=== PATIENT | female | born 1960 | race Caucasian/White ===

== ENCOUNTER 2018-08-20 16:24 | Outpatient (CLI) | payer BC ==
--- NOTE | 2018-08-20 18:43 | RAD ---
3 VIEWS RIGHT FOOT: Date: 08/20/18 HISTORY: Pain. Injury. Patient dropped a gallon of milk on the side of the foot 1 month ago. COMPARISON: None. FINDINGS: Lisfranc alignment is maintained. Joint spaces are preserved. No fracture. Minimal spurring of the ca lcaneus at the plantar aponeurosis insertion site. There is midfoot soft tissue swelling. IMPRESSION: No fracture. There is midfoot soft tissue swelling. POS: [facility]
== END 2018-08-20 16:25 | disposition home or self-care (01) ==
LOC: BICRAD 16:24
PROVIDERS: ATTEND Physician Assistant Medical
DX: S99.921A Unspecified injury of right foot, initial encounter (principal); M79.89 Other specified soft tissue disorders

== ENCOUNTER 2018-09-23 09:45 | Outpatient (CLI) | payer BC | END 2018-09-23 09:46 | disposition home or self-care (01) | LOC: BICMAMMO 09:45 | PROVIDERS: ATTEND Family Medicine | DX: Z12.31 Encounter for screening mammogram for malignant neoplasm of breast (principal) | CPT/HCPCS: 77063; 77067 ==

== ENCOUNTER 2020-11-30 08:57 | Inpatient (IN) | payer BC ==
[2020-11-30] MEDS ORDERED: Nitroglycerin 2% Ointment 1 INCH/1 GM Packet ONE (09:32)
[2020-11-30] MEDS ORDERED: Aspirin Chewable 81 MG TAB ONE (09:32)
--- NOTE | 2020-11-30 09:34 | RAD ---
Chest one view HISTORY: Chest pain. COMPARISON: 02/18/2019. FINDINGS: Cardiac silhouette is magnified by projection and slightly shifted rightward with patient r otation. Dual lead left subclavian cardiac electronic device in place. Pulmonary vasculature is engorged with mild bilateral perihilar infiltrates. Subtle, patchy partially peripheral areas of groundglass infiltrate are also evident. No evidence of pneumothorax. IMPRESSION : Borderline cardiomegaly with pulmonary vascular congestion. Correlate for CHF. Patchy groundglass infiltrates not completely typical for vascular congestion. Correlate for superimp osed viral pneumonitis.
[2020-11-30] MEDS ORDERED: Clopidogrel Bisulfate 75 MG TAB ONE (09:55)
[2020-11-30 10:00] LABS: #Eosinphils 0.1 thou/uL (0.0-0.7); #Lymphocytes 1.3 thou/uL (1.20-3.40); #Monocytes 0.3 thou/uL (0.11-0.59); #Neutrophils 6.2 thou/uL (1.40-6.50); %Basophils 0.6 % (0.0-1.0); %Eosinophils 1.7 % (0.0-10.0); %Lymphocytes 15.7 % (21.0-51.0); %Monocytes 4.1 % (0.0-10.0); %Neutrophils 77.9 % (42.0-75.0); Hemoglobin 12.6 g/dL (12.0-16.0); Mean Corpuscular Hemoglobin 31.3 pg (27.0-31.0); Mean Corpuscular Volume 92.2 fL (78.0-98.0); Mean Platelet Volume 9.7 fL (7.4-10.4); Platelet Count 253 thou/uL (130-400); RBC Distribution Width 11.7 % (11.5-14.5); Red Blood Cell (RBC) Count 4.01 mill/uL (4.20-5.40)
[2020-11-30] MEDS ORDERED: Labetalol HCl 100 MG/20 ML VIAL ONE (10:22)
[2020-11-30 10:23] LABS: ALT (SGPT) 24 U/L (8-55); AST (SGOT) 16 U/L (5-34); Albumin 4.2 g/dL (3.4-4.8); Alkaline Phosphatase 96 U/L (40-110); Anion Gap 15 mmol/L (10-20); BUN (Urea Nitrogen) 11 mg/dL (9.8-20.1); Bilirubin, Total 0.5 mg/dL (0.2-1.2); Calc. Creatinine Clearance 0 mL/min (70-130); Calcium 9.2 mg/dL (7.8-10.44); Carbon Dioxide 29 mmol/L (23-31); Chloride 97 mmol/L (98-107); Globulin 3.1 g/dL (2.4-3.5); Glucose 126 mg/dL (80-115); Potassium 3.7 mmol/L (3.5-5.1); Protein, Total 7.3 g/dL (6.0-8.3); Sodium 137 mmol/L (136-145)
[2020-11-30 10:38] LABS: CKMB 2.5 ng/mL (0-6.6)
--- NOTE | 2020-11-30 11:40 | PDOC.FPRHP ---
- History of Present Illness Chief Complaint: sob, chest pain History of Present Illness: 60 ho F with hx of heart block with AICD, HTN, HLD here for SOB. She has been having dyspnea with exertion for the past few days but denies LE swelling. She has had 3 episodes of substernal pressure with associated dyspnea and nausea. After the episode this morning she called Dr. Cardenas's office who advised her to come to the ER. She states sitting up improves the pain, no radiation with improvement with nitro paste given in the ER.She was found to have indeterminate troponins. Her BPs were in the 190s so was given 100 mg of labetalol. Discussion with Dr. Leblanc's nurse: She had a NMST in May 2020 that was normal with EF 64%, pacemaker brittaney this month that was normal, and an echo in 2018 that was also normal. Records will be faxed over. ER: plavix, labetalol 100mg, nitro paste - Allergies/Adverse Reactions Allergies Allergy/AdvReac Type Severity Reaction Status Date / Time Penicillins Allergy Verified 02/08/20 02:53 Sulfa (Sulfonamide Allergy Verified 02/08/20 02:53 Antibiotics) - Home Medications Medication Instructions Recorded Confirmed Type Amlodipine Besylate [amLODIPine 10 mg PO DAILY 04/06/16 04/06/16 History Besylate] Atorvastatin Calcium [Lipitor] 10 mg PO HS 04/06/16 04/06/16 History Carvedilol 25 mg PO BID 04/06/16 04/06/16 History Cholecalciferol (Vitamin D3) 1,000 unit PO DAILY 04/06/16 04/06/16 History [Vitamin D3] DULoxetine HCl 60 mg PO DAILY 04/06/16 04/06/16 History FLUoxetine HCl [Prozac] 40 mg PO DAILY 04/06/16 04/06/16 History hydrALAZINE [Apresoline] 25 mg PO BID 04/06/16 04/06/16 History Ciprofloxacin [Cipro] 500 mg PO BID #14 tab 04/08/16 Rx Metronidazole [metroNIDAZOLE] 500 mg PO Q12HR #14 tab 04/08/16 Rx Ondansetron [Zofran ODT] 4 mg PO Q6H PRN #15 tab 04/08/16 Rx traMADol HCl [Ultram] 50 mg PO Q6H PRN #12 tab 04/08/16 Rx - History PMHx: HTN, HLD, Thyroid, abnormal heart rhythm , congenital hip disorder PSHx: hysterectomy, pacemaker/AICD placement FHx: Cancer, DM2, CAD Social: Denies TAD. 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 - Review of Systems General: denies: fever/chills, weight/appetite/sleep changes, night sweats ENT: denies: nasal congestion, rhinorrhea Respiratory: reports: shortness of breath, exercise intolerance. denies: cough, congestion Cardiovascular: reports: chest pain. denies: palpitation, edema, orthopnea Gastrointestinal: reports: nausea. denies: vomiting, diarrhea, constipation, abdominal pain, GI bleeding Skin: denies: rashes, lesions Musculoskeletal: denies: pain, tenderness, stiffness, swelling Neurological: denies: numbness, syncope, seizure, weakness Psychological: reports: anxiety, depression - Vital signs BP: [164/82] HR: [72] RR: [18] Tmax: [99.5] Pox: [95]% on [2L] - Physical Exam Constitutional: NAD, awake, alert and oriented HEENT: normocephalic and atraumatic, PERRLA, EOMI, conjunctiva clear Neck: supple, FROM, trachea midline, no JVD Chest: no-tender to palpation, no lesions Heart: RRR, normal S1/S2, no murmurs/rubs/gallops Lungs: CTAB, no respiratory distress, no wheezing Abdomen: soft, non-tender, bowel sounds present Neurological: no focal deficit, CN II-XII intact, normal sensation Skin: no rash/lesions, good turgor, capillary refill <2 seconds Heme/Lymphatic: no unusual bruising or bleeding, no purpura Psychiatric: normal mood and affect, good judgment and insight FMR H&P: Results - Labs Result Diagrams: 11/30/20 09:45 11/30/20 09:45 Lab results: WBC 8.0 thou/uL (4.8-10.8) 11/30/20 09:45 Hgb 12.6 g/dL (12.0-16.0) 11/30/20 09:45 Hct 37.0 % (36.0-47.0) 11/30/20 09:45 MCV 92.2 fL (78.0-98.0) 11/30/20 09:45 Plt Count 253 thou/uL (130-400) 11/30/20 09:45 Neutrophils % 77.9 % (42.0-75.0) H 11/30/20 09:45 Sodium 137 mmol/L (136-145) 11/30/20 09:45 Potassium 3.7 mmol/L (3.5-5.1) 11/30/20 09:45 Chloride 97 mmol/L (98-107) L 11/30/20 09:45 Carbon Dioxide 29 mmol/L (23-31) 11/30/20 09:45 BUN 11 mg/dL (9.8-20.1) 11/30/20 09:45 Creatinine 0.69 mg/dL (0.6-1.1) 11/30/20 09:45 Glucose 126 mg/dL (80-115) H 11/30/20 09:45 Calcium 9.2 mg/dL (7.8-10.44) 11/30/20 09:45 Total Bilirubin 0.5 mg/dL (0.2-1.2) 11/30/20 09:45 AST 16 U/L (5-34) 11/30/20 09:45 ALT 24 U/L (8-55) 11/30/20 09:45 Alkaline Phosphatase 96 U/L (40-110) 11/30/20 09:45 CK-MB (CK-2) 2.5 ng/mL (0-6.6) 11/30/20 09:45 B-Natriuretic Peptide 244.4 pg/mL (0-100) H 11/30/20 09:45 Serum Total Protein 7.3 g/dL (6.0-8.3) 11/30/20 09:45 Albumin 4.2 g/dL (3.4-4.8) 11/30/20 09:45 - Radiology Interpretation Chest x-ray Status: image reviewed by me, report reviewed by me FMR H&P: A/P - Plan 60 yo F here for further evalaution due to concern for ACS Chest pain, ACS rule out -Indeterminate troponin of 0.036, will trend -EKG: V paced, [place] 246ms -Repeat TTE -HEART 5, NPO plan for repeat NMST with new change in sxs and cardiac risk factors -Nitro PRN, ASA dialy -Interrogate pacemaker -Admit to tele for cardiac monitoring -Consider COVID as cause of dyspnea-pending COVID screen, precuations for now HTN -Elevated in ER & required IV labetalol -Now improved to SBP 150s -Home meds, PRN hydralazine Hx of AV Block with Pacemaker -Interrogated in November in which nurse reports as normal -Will monitor on telemetry Anxiety/Depression -Continue home meds Recent root canal -Continue home abx Hypothyroidism -Continue home meds dvt ppx: lovenox gi ppx: protonix dispo: <2midnights PCP: Dr. Cardenas Discussed with Dr. Mahmood FMR H&P: Upper Level - Plan Date/Time: 11/30/20 2707 I, [], have evaluated this patient and agree with findings/plan as outlined by research program internship resident. Pertinent changes/additions are listed here. Addendum - Attending - Attending Attestation Date/Time: 11/30/20 4907 I personally evaluated the patient and discussed the management with Dr. Rodriguez. I agree with the History, Examination, Assessment and Plan documented above with any addition or exceptions noted below.
[2020-11-30 13:08] LABS: Troponin I 0.039 ng/mL (< 0.028)
[2020-11-30 13:19] LABS: SARS-CoV-2 NAA Rapid Test Not Detected (NotDetected)
[2020-11-30] MEDS ORDERED: Nitroglycerin 0.4 MG TAB (25 Tab Bottle) SL PRN (15:14)
[2020-11-30] MEDS ORDERED: Ondansetron ODT 4 MG TAB SL PRN (15:15)
[2020-11-30] MEDS ORDERED: Ondansetron PF 4 MG/2 ML Vial IVP PRN (15:15)
[2020-11-30 16:03] VITALS: BMI 49.8
[2020-11-30 16:59] LABS: Troponin I 0.021 ng/mL (< 0.028)
[2020-11-30] MEDS ORDERED: Senokot 8.6 MG TAB PO PRN (22:08)
[2020-11-30] MEDS ORDERED: Polyethylene Glycol 3350 17 GM Packet PO PRN (22:08)
[2020-11-30] MEDS ORDERED: Bisacodyl 5 MG TAB PO PRN (22:10)
[2020-11-30] MEDS: Acetaminophen 325 MG TAB PO PRN (22:59)
[2020-12-01] MEDS ORDERED: hydrALAZINE 25 MG TAB PO SCH (01:30)
[2020-12-01 05:03] LABS: Anion Gap 14 mmol/L (10-20); BUN (Urea Nitrogen) 10 mg/dL (9.8-20.1); Calc. Creatinine Clearance 171 mL/min (70-130); Carbon Dioxide 29 mmol/L (23-31); Cardiac Risk 3.3 (Less than 4.5); Chloride 94 mmol/L (98-107); Cholesterol 165 mg/dl (< 200 Desired); Glucose 122 mg/dL (80-115); HDL Cholesterol 50 mg/dL (>60 Neg Risk); LDL Cholesterol, Calculated 98 mg/dL; Sodium 133 mmol/L (136-145); Triglycerides 84 mg/dL (Less than 150)
--- NOTE | 2020-12-01 06:24 | PDOC.FM ---
- Subjective Subjective: Currently in stress test. No events overnight on tele: chronic 1st degree AV block noted - Objective MAR Reviewed: Yes Vital Signs & Weight: Vital Signs (12 hours) Temp Pulse Resp BP BP Pulse Ox 12/01/20 03:32 97.6 F 88 16 173/89 H 94 L 12/01/20 01:52 89 177/103 H 177/103 H 12/01/20 00:02 178/98 H 12/01/20 00:01 174/83 H 12/01/20 00:00 98.1 F 89 20 193/83 H 93 L 11/30/20 20:14 94 L 11/30/20 20:06 97.9 F 82 18 140/81 97 Weight Weight 131.723 kg I&O: 11/29/20 11/30/20 12/01/20 06:59 06:59 06:59 Intake Total 500 Balance 500 Result Diagrams: 11/30/20 09:45 12/01/20 04:25 Phys Exam - Physical Examination Constitutional: NAD HEENT: moist MMs, sclera anicteric Neck: full ROM Nonlabored, no respiratory distress Neurological: moves all 4 limbs Psychiatric: normal affect Dx/Plan - Plan Plan: 60 yo F here for further evalaution due to concern for ACS Chest pain, ACS rule out -Admit to tele for cardiac monitoring -Indeterminate troponin of 0.036 -> .039 -> .02 -COVID neg -EKG: V paced, [place] 246ms -HEART 5, repeat NMST this am due to new change in sxs and cardiac risk factors -Nitro PRN, ASA dialy -Interrogate pacemaker HTN -BP 170-190s systolic overnight, required hydralazine 25mg overnight -Home meds, PRN hydralazine Hx of AV Block with Pacemaker -Interrogated in November in which nurse reports as normal -Will monitor on telemetry Anxiety/Depression -Continue home meds Recent root canal -Continue home abx Hypothyroidism -Continue home meds dvt ppx: lovenox PCP: Dr. Cardenas Code: FULL Dispo: Home pending stress test and echo result Addendum - Attending - Attending Attestation Date/Time: 12/01/20 1122 I personally evaluated the patient and discussed the management with Dr. Rodriguez. I agree with the History, Examination, Assessment and Plan documented above with any addition or exceptions noted below.
[2020-12-01] MEDS ORDERED: Enoxaparin Sodium 40 MG/0.4 ML SYRINGE SC SCH (09:00)
[2020-12-01] MEDS ORDERED: Non-Formulary Item 1 EACH (Cholecalciferol (Vitamin D3) [Vitamin D3] 1,000 UNIT Capsule) PO SCH (09:00)
[2020-12-01] MEDS ORDERED: Non-Formulary Item 1 EACH (Levothyroxine Sodium [Levothyroxine] 75 MCG Capsule) PO SCH (09:00)
[2020-12-01] MEDS: Cholecalciferol 1,000 UNITS (25 MCG) TAB PO SCH (10:58)
[2020-12-01] MEDS: hydrALAZINE 25 MG TAB PO SCH ×2 (10:58→21:19)
[2020-12-01] MEDS: DULoxetine 60 MG CAP PO SCH (11:01)
[2020-12-01] MEDS: Aspirin Chewable 81 MG TAB PO SCH (11:39)
[2020-12-01] MEDS ORDERED: Spironolactone 25 MG TAB PO SCH (13:45)
[2020-12-01] MEDS ORDERED: Communication Order-Pharmacy FS SCH (13:45)
[2020-12-01] MEDS ORDERED: Furosemide 40 MG/4 ML VIAL SLOW IVP SCH (13:45)
--- NOTE | 2020-12-01 14:58 | CON ---
DATE OF CONSULTATION: 12/01/2020 REASON FOR CONSULTATION: Shortness of breath and chest pain. PRIMARY OUTREACH CONSULTANT: Dr. Terrence Eaton. HISTORY OF PRESENT ILLNESS: Ms. Olivarez is a pleasant 60-year-old white female, who comes to the hospital for chest pain and shortness of breath. She has significant cardiac history. She had a complete heart block about 2 years ago, in January of 2019, at which point she underwent permanent pacemaker placement by Dr. Eaton. More recently, about 6 to 7 months ago, she had a normal echo and a normal stress test at Dr. Eaton's office, and she was at Dr. Eaton's office about a week ago, at which point she had a normal interrogation of her pacemaker. Her EF in May 2020 on the nuclear stress test was 64%. She came in as she has had two days' worth of worsening shortness of breath and chest tightness. She came in, and her blood pressure was in the 190s over 100s. She was given IV labetalol, and her blood pressure has improved, but still elevated. On my evaluation, she denies any chest pain, tightness, or pressure, but admits to continued shortness of breath to the point where she is unable to lie flat on her back. PAST MEDICAL HISTORY: 1. Hypertension. 2. Hyperlipidemia. 3. Obesity. 4. Complete heart block, status post pacemaker placement. OUTPATIENT MEDICATIONS: 1. Hydralazine 50 mg b.i.d. 2. Levothyroxine 75 mcg a day. 3. Tramadol 50 mg p.r.n. 4. Duloxetine 120 mg a day. 5. Carvedilol 25 mg b.i.d. 6. Vitamin D3. 7. Lipitor 10 mg q.h.s. 8. Aspirin 81 a day. 9. Clindamycin added recently for a tooth infection. ALLERGIES: PENICILLIN AND SULFA DRUGS. SOCIAL HISTORY: Social alcohol use. No tobacco or drugs. FAMILY HISTORY: coronary artery disease in family members. SURGICAL HISTORY: 1. Pacemaker insertion. She does not have an AICD. She only has a pacemaker. 2. Hysterectomy. REVIEW OF SYSTEMS: A 12-point review of systems was done and was found to be negative other than stated in the history of present illness. PHYSICAL EXAMINATION: VITAL SIGNS: Temperature 97.6, pulse 88, respiratory rate 16, saturating 94% on room air, and blood pressure 173/89. GENERAL: Awake, alert, oriented x3, in no distress. HEENT: Normocephalic and atraumatic. NECK: Supple. LUNGS: Clear. CARDIOVASCULAR: S1 and S2. No S3 or S4. There is a very soft grade 2/6 systolic murmur in the right upper sternal border. ABDOMEN: Soft, positive bowel sounds. EXTREMITIES: Trace edema. SKIN: Warm and dry. LABORATORY DATA: Laboratory work was reviewed. White count of 8, hemoglobin of 12, hematocrit 37, and platelet count . Chemistry with a sodium of 133, potassium is 4.0, chloride of 94, carbon dioxide of 29, anion gap of 14, BUN of 10, creatinine 0.72, GFR of 82, glucose was 122. Hemoglobin A1c of 6.0. Calcium was 9. Troponin was 0.03, 0.03, and 0.02. BNP was 244. Cholesterol total of 165, triglycerides of 84, LDL of 98, HDL of 50. COVID-19 PCR serology was negative. Influenza A and B were both negative as well. Chest x-ray was reviewed, shows patchy ground-glass infiltrates, which could be correlated to heart failure versus a viral pneumonia. Echocardiogram recently reviewed, EF about 35% to 40% with akinesis of the apex, LVH. ASSESSMENT AND PLAN: 1. Acute on chronic systolic heart failure. 2. New onset dilated cardiomyopathy with an EF of 35% to 40%. 3. Presence of a pacemaker. 4. Hypertension. PLAN: 1. We will diurese today. We will give one dose of Lasix at 60 mg IV once. Hopefully, she will be able to breathe better, and she will be able to lie flat tomorrow morning to do a heart catheterization. 2. We will screen for ischemia with a left heart catheterization. We spoke at length about the risks and benefits of the procedure. Risks included but not limited to stroke, CA, , bleeding, need for blood transfusion, limb loss, organ loss, emergent bypass surgery. The patient understands and verbalized understanding of this and agrees to proceed. We also spoke about conscious sedation, and she agrees to this as well. Further recommendations as far as ischemic workup pending results of coronary angiogram. 3. We will start CHF medications. She is already on carvedilol at full dose, which we should continue. Continue hydralazine. We will add Entresto at the lowest dose and up titrate in the next few days, and we will possibly do Aldactone in the next few days as long as blood pressure is still an issue. Thank you for letting us participate in the care of your patient. We will follow. Job ID: [id number]
[2020-12-01] MEDS: Atorvastatin Calcium 10 MG TAB PO SCH (21:18)
[2020-12-01] MEDS: Acetaminophen 325 MG TAB PO PRN (21:22)
[2020-12-02] MEDS ORDERED: Sodium Chloride 0.9% 500 ML IV SCH (00:01)
[2020-12-02] MEDS ORDERED: hydrALAZINE 20 MG/ML VIAL SLOW IVP SCH ×2 (04:15→18:00)
[2020-12-02] MEDS: DULoxetine 60 MG CAP PO SCH (05:00)
[2020-12-02] MEDS: Aspirin Chewable 81 MG TAB PO SCH (05:02)
[2020-12-02] MEDS: Spironolactone 25 MG TAB PO SCH (05:02)
[2020-12-02] MEDS: Cholecalciferol 1,000 UNITS (25 MCG) TAB PO SCH (05:03)
[2020-12-02] MEDS: hydrALAZINE 25 MG TAB PO SCH ×2 (05:03→21:14)
[2020-12-02] MEDS: Levothyroxine Sodium 75 MCG TAB PO SCH (05:03)
--- NOTE | 2020-12-02 06:31 | PDOC.FM ---
- Subjective Subjective: Reports continued chest pain, unchanged since admission. Frontal headache this am that she associates with elevated BP. Orthopnea improved after recieving Lasix 60IV yesterday. Denies lightheadedness, fatigue, vision changes, palpitations, and edema. - Objective MAR Reviewed: Yes Vital Signs & Weight: Vital Signs (12 hours) Temp Pulse Resp BP Pulse Ox 12/02/20 05:07 98.7 F 89 17 168/75 H 97 12/02/20 05:03 94 12/02/20 04:11 94 12/02/20 03:30 86 197/94 H 12/01/20 23:36 94 145/95 H 12/01/20 21:19 79 12/01/20 19:47 99.1 F 94 19 152/101 H 96 Weight Weight 131.723 kg I&O: 11/30/20 12/01/20 12/02/20 06:59 06:59 06:59 Intake Total 500 980 Balance 500 980 Result Diagrams: 12/02/20 11:08 12/01/20 04:25 Phys Exam - Physical Examination Constitutional: NAD HEENT: moist MMs, sclera anicteric Neck: full ROM Respiratory: no wheezing, clear to auscultation bilateral Cardiovascular: RRR, no significant murmur Gastrointestinal: soft, non-tender, positive bowel sounds Musculoskeletal: no edema Neurological: moves all 4 limbs Psychiatric: normal affect, A&O x 3 Skin: no rash Dx/Plan - Plan Plan: 60 yo F with hx of complete heart block s/p pacer, HTN and HLD who presents with dyspnea on exertion Acute on chronic heart failure -HEART score 5. -Admit to tele for cardiac monitoring -Indeterminate troponin of 0.036 -> .039 -> .02 -COVID neg -EKG: V paced, [place] 246ms -Echo: 35-40%, akinesis present concerning for old [place] vs. takotsubo cardiomyopathy -Nitro PRN, ASA daily -Dr. George, cardiology, was consulted: Started entresto and spironolactone. s/p lasix 60mg IV once. Started NS @ 50 due to NPO status for L heart cath today Dilated cardiomyopathy -Management per above HTN -Home meds, PRN hydralazine Hx of complete AV Block with Pacemaker -Interrogated in November in which nurse reports as normal -Monitor on telemetry Anxiety/Depression -Continue home meds Recent root canal -Continue home abx Hypothyroidism -Continue home meds dvt ppx: lovenox PCP: Dr. Cardenas Code: FULL Dispo: Home pending further medical management Addendum - Attending - Attending Attestation Date/Time: 12/02/20 7582 I personally evaluated the patient and discussed the management with Dr. Rodriguez. I agree with the History, Examination, Assessment and Plan documented above with any addition or exceptions noted below. Patient resting comfortably, has completed LHC. Awaiting further cardiology recs. Needs improved BP control, will escalate. Further mgmt pending cardiology recs.
[2020-12-02] MEDS ORDERED: hydrALAZINE 25 MG TAB PO SCH (08:15)
[2020-12-02] MEDS ORDERED: Nitroglycerin 100MG/250ML BOT 250 ML ONE (08:57)
[2020-12-02] MEDS ORDERED: Heparin 10,000 UNITS/ 10 ML VIAL ONE (08:57)
[2020-12-02] MEDS ORDERED: Verapamil 5 MG/2 ML VIAL ONE (08:57)
[2020-12-02] MEDS ORDERED: Midazolam HCl 2 mg/2 ml Vial ONE (09:03)
[2020-12-02] MEDS ORDERED: Fentanyl 100 MCG/2 ML VIAL ONE (09:03)
[2020-12-02] MEDS ORDERED: Sodium Chloride 0.9% 200 ML IV PRN (10:02)
[2020-12-02] MEDS ORDERED: Sodium Chloride 0.9% 250 ML IV SCH (10:15)
[2020-12-02] MEDS ORDERED: Iopamidol 370 76% 100 ML VIAL ONE (10:22)
[2020-12-02] MEDS: Acetaminophen 325 MG TAB PO PRN (10:42)
[2020-12-02 11:21] LABS: #Eosinphils 0.2 thou/uL (0.0-0.7); #Lymphocytes 1.1 thou/uL (1.20-3.40); #Monocytes 0.5 thou/uL (0.11-0.59); #Neutrophils 6.1 thou/uL (1.40-6.50); %Basophils 0.3 % (0.0-1.0); %Monocytes 5.9 % (0.0-10.0); %Neutrophils 76.8 % (42.0-75.0); Hemoglobin 12.7 g/dL (12.0-16.0); Mean Corpuscular HGB CONC 33.5 g/dL (32.0-36.0); Mean Corpuscular Hemoglobin 30.9 pg (27.0-31.0); Mean Corpuscular Volume 92.3 fL (78.0-98.0); Mean Platelet Volume 10.5 fL (7.4-10.4); Platelet Count 200 thou/uL (130-400); RBC Distribution Width 11.9 % (11.5-14.5); Red Blood Cell (RBC) Count 4.11 mill/uL (4.20-5.40); White Blood Cell (WBC) Count 7.9 thou/uL (4.8-10.8)
[2020-12-02 11:39] LABS: Anion Gap 17 mmol/L (10-20); BUN (Urea Nitrogen) 7 mg/dL (9.8-20.1); Calc. Creatinine Clearance 205 mL/min (70-130); Calcium 8.4 mg/dL (7.8-10.44); Carbon Dioxide 23 mmol/L (23-31); Chloride 99 mmol/L (98-107); Glucose 116 mg/dL (80-115); Magnesium 1.4 mg/dL (1.6-2.6); Potassium 3.5 mmol/L (3.5-5.1); Sodium 135 mmol/L (136-145)
[2020-12-02] MEDS ORDERED: Carvedilol 25 MG TAB PO SCH (15:30)
[2020-12-02] MEDS: Carvedilol 25 MG TAB PO SCH (21:14)
[2020-12-02] MEDS: Atorvastatin Calcium 10 MG TAB PO SCH (21:14)
[2020-12-03 04:53] LABS: #Eosinphils 0.3 thou/uL (0.0-0.7); #Lymphocytes 1.1 thou/uL (1.20-3.40); #Monocytes 0.6 thou/uL (0.11-0.59); #Neutrophils 5.7 thou/uL (1.40-6.50); %Basophils 0.3 % (0.0-1.0); %Eosinophils 3.8 % (0.0-10.0); %Lymphocytes 14.3 % (21.0-51.0); %Monocytes 7.2 % (0.0-10.0); %Neutrophils 74.4 % (42.0-75.0); Hemoglobin 12.3 g/dL (12.0-16.0); Mean Corpuscular HGB CONC 33.5 g/dL (32.0-36.0); Mean Corpuscular Volume 92.7 fL (78.0-98.0); Mean Platelet Volume 9.2 fL (7.4-10.4); Platelet Count 252 thou/uL (130-400); RBC Distribution Width 11.8 % (11.5-14.5); Red Blood Cell (RBC) Count 3.97 mill/uL (4.20-5.40); White Blood Cell (WBC) Count 7.6 thou/uL (4.8-10.8)
[2020-12-03 05:22] LABS: Anion Gap 14 mmol/L (10-20); BUN (Urea Nitrogen) 11 mg/dL (9.8-20.1); Calc. Creatinine Clearance 186 mL/min (70-130); Calcium 8.6 mg/dL (7.8-10.44); Carbon Dioxide 26 mmol/L (23-31); Chloride 98 mmol/L (98-107); Glucose 118 mg/dL (80-115); Potassium 3.4 mmol/L (3.5-5.1); Sodium 135 mmol/L (136-145)
[2020-12-03] MEDS: Levothyroxine Sodium 75 MCG TAB PO SCH (05:32)
--- NOTE | 2020-12-03 06:11 | PDOC.FM ---
- Subjective Subjective: No acute overnight events. Endorses mild low back pain. No chest pain, SOB, palpitations. - Objective Vital Signs & Weight: Vital Signs (12 hours) Temp Pulse Resp BP BP Pulse Ox 12/03/20 04:20 98.3 F 79 18 143/71 H 95 12/02/20 21:14 80 150/76 H 12/02/20 21:13 80 12/02/20 21:00 98.3 F 79 20 142/67 H 95 Weight Weight 127.006 kg I&O: 12/01/20 12/02/20 12/03/20 06:59 06:59 06:59 Intake Total 500 980 970 Balance 500 980 970 Result Diagrams: 12/03/20 04:17 12/03/20 04:17 Phys Exam - Physical Examination Constitutional: NAD HEENT: moist MMs Neck: supple Respiratory: no wheezing, no rales, clear to auscultation bilateral Cardiovascular: RRR, no significant murmur Gastrointestinal: soft, non-tender Musculoskeletal: no edema, pulses present Neurological: non-focal, moves all 4 limbs Psychiatric: normal affect, A&O x 3 Skin: normal turgor, cap refill <2 seconds Dx/Plan - Plan Plan: 60 yo F with hx of complete heart block s/p pacer, HTN and HLD who presents with dyspnea on exertion Acute on chronic heart failure -HEART score 5. -Admit to tele for cardiac monitoring -Indeterminate troponin of 0.036 -> .039 -> .02 -COVID neg -EKG: V paced, [place] 246ms -Echo: 35-40%, akinesis present concerning for old [place] vs. takotsubo cardiomyopathy -Nitro PRN, ASA daily -Dr. George, cardiology, was consulted: - Started entresto and spironolactone - L heart cath: no CAD, likely HTN CM - appreciate further recs Dilated cardiomyopathy -Management per above HTN Elevated, has had some improvement. - continue home carvedilol, hydralazine - entresto added for HF which has improved BP some as well Hx of complete AV Block with Pacemaker -Interrogated in November in which nurse reports as normal -Monitor on telemetry Anxiety/Depression -Continue home meds Recent root canal -Continue home abx Hypothyroidism -Continue home meds dvt ppx: lovenox PCP: Dr. Cardenas Code: FULL Dispo: Home pending further medical management Addendum - Attending - Attending Attestation Date/Time: 12/03/20 2502 I personally evaluated the patient and discussed the management with Dr. Gaxiola. I agree with the History, Examination, Assessment and Plan documented above with any addition or exceptions noted below. Cath yesterday consistent with non-ischemic cardiomyopathy. Will f/u with cardiology recs. Continue current heart failure meds. Monitor blood pressure.
[2020-12-03] MEDS: DULoxetine 60 MG CAP PO SCH (08:06)
[2020-12-03] MEDS: hydrALAZINE 25 MG TAB PO SCH ×2 (08:06→21:16)
[2020-12-03] MEDS: Carvedilol 25 MG TAB PO SCH ×2 (08:07→21:16)
[2020-12-03] MEDS: Aspirin Chewable 81 MG TAB PO SCH (08:08)
[2020-12-03] MEDS: Spironolactone 25 MG TAB PO SCH (08:11)
[2020-12-03] MEDS: Cholecalciferol 1,000 UNITS (25 MCG) TAB PO SCH (08:11)
[2020-12-03] MEDS ORDERED: Lidocaine 5% Patch TD PRN (09:00)
[2020-12-03] MEDS ORDERED: Potassium Chloride 20 MEQ TAB PO SCH (10:00)
[2020-12-03] MEDS: Magnesium Oxide 400 MG TAB PO SCH ×2 (11:11→21:16)
[2020-12-03] MEDS: Acetaminophen 325 MG TAB PO PRN (16:09)
[2020-12-03] MEDS ORDERED: Lidocaine Patch Removal 1 EACH TOP SCH (21:00)
[2020-12-03] MEDS: Atorvastatin Calcium 10 MG TAB PO SCH (21:15)
[2020-12-04 04:10] LABS: #Eosinphils 0.3 thou/uL (0.0-0.7); #Lymphocytes 1.4 thou/uL (1.20-3.40); #Monocytes 0.5 thou/uL (0.11-0.59); #Neutrophils 4.3 thou/uL (1.40-6.50); %Basophils 0.6 % (0.0-1.0); %Lymphocytes 21.4 % (21.0-51.0); %Monocytes 8.2 % (0.0-10.0); %Neutrophils 64.8 % (42.0-75.0); Hemoglobin 12.5 g/dL (12.0-16.0); Mean Corpuscular HGB CONC 33.6 g/dL (32.0-36.0); Mean Corpuscular Hemoglobin 31.7 pg (27.0-31.0); Mean Corpuscular Volume 94.5 fL (78.0-98.0); Mean Platelet Volume 10.4 fL (7.4-10.4); Platelet Count 196 thou/uL (130-400); RBC Distribution Width 11.9 % (11.5-14.5); Red Blood Cell (RBC) Count 3.94 mill/uL (4.20-5.40); White Blood Cell (WBC) Count 6.6 thou/uL (4.8-10.8)
[2020-12-04 04:21] LABS: Anion Gap 15 mmol/L (10-20); BUN (Urea Nitrogen) 9 mg/dL (9.8-20.1); Calc. Creatinine Clearance 188 mL/min (70-130); Calcium 8.5 mg/dL (7.8-10.44); Carbon Dioxide 24 mmol/L (23-31); Chloride 100 mmol/L (98-107); Glucose 122 mg/dL (80-115); Potassium 3.7 mmol/L (3.5-5.1); Sodium 135 mmol/L (136-145)
[2020-12-04] MEDS: Levothyroxine Sodium 75 MCG TAB PO SCH (05:48)
--- NOTE | 2020-12-04 06:10 | PDOC.FM ---
- Subjective Subjective: No acute overnight events. BP relatively well controlled overnight, elevated this AM although this is possibly an artificial elevation as the cuff was popping off of the arm during measurement. Pt denies any chest pain, SOB, palpitations. Endorses some redness over R AC where she had IV previously, which is new. - Objective Vital Signs & Weight: Vital Signs (12 hours) Temp Pulse Resp BP BP Pulse Ox 12/04/20 04:00 97.7 F 75 16 140/79 95 12/04/20 00:00 81 145/78 H 12/03/20 21:16 84 12/03/20 20:00 98.1 F 84 18 177/79 H 98 Weight Weight 127.006 kg I&O: 12/02/20 12/03/20 12/04/20 06:59 06:59 06:59 Intake Total 980 970 Balance 980 970 Result Diagrams: 12/04/20 03:20 12/04/20 03:20 EKG Reviewed by me: Yes (SR rate 60s on tele overnight) Phys Exam - Physical Examination Constitutional: NAD HEENT: moist MMs Neck: supple Respiratory: no wheezing, no rales, clear to auscultation bilateral Cardiovascular: RRR, no significant murmur Gastrointestinal: soft, non-tender Musculoskeletal: pulses present, edema present (1-2+ pitting edema bilaterally in dependent positioning) Neurological: non-focal, moves all 4 limbs Psychiatric: normal affect, A&O x 3 Skin: normal turgor, cap refill <2 seconds Dx/Plan - Plan Plan: 60 yo F with hx of complete heart block s/p pacer, HTN and HLD who presents with dyspnea on exertion Acute on chronic heart failure -HEART score 5. -Admit to tele for cardiac monitoring -Indeterminate troponin of 0.036 -> .039 -> .02 -COVID neg -EKG: V paced, [place] 246ms -Echo: 35-40%, akinesis present concerning for old [place] vs. takotsubo cardiomyopathy -Nitro PRN, ASA daily -Dr. George, cardiology, was consulted: - Started entresto and spironolactone - L heart cath: no CAD, likely HTN CM - appreciate further recs Dilated cardiomyopathy -Management per above HTN Elevated, has had some improvement. - continue home carvedilol, hydralazine - entresto added for HF which has improved BP some as well Hx of complete AV Block with Pacemaker -Interrogated in November in which nurse reports as normal -Monitor on telemetry Anxiety/Depression -Continue home meds Recent root canal -Continue home abx Hypothyroidism -Continue home meds dvt ppx: lovenox PCP: Dr. Cardenas Code: FULL Dispo: Home pending further medical management Addendum - Attending - Attending Attestation Date/Time: 12/04/20 1640 I personally evaluated the patient and discussed the management with Dr. Gaxiola. I agree with the History, Examination, Assessment and Plan documented above with any addition or exceptions noted below. Will work to adjust meds for better bp control. Will f/u on cardiology recs. Pt states she is feeling a little better.
[2020-12-04] MEDS: hydrALAZINE 25 MG TAB PO SCH ×2 (07:58→21:41)
[2020-12-04] MEDS: DULoxetine 60 MG CAP PO SCH (07:59)
[2020-12-04] MEDS: Carvedilol 25 MG TAB PO SCH ×2 (07:59→21:41)
[2020-12-04] MEDS: Spironolactone 25 MG TAB PO SCH (07:59)
[2020-12-04] MEDS: Cholecalciferol 1,000 UNITS (25 MCG) TAB PO SCH (08:00)
[2020-12-04] MEDS: Aspirin Chewable 81 MG TAB PO SCH (08:00)
[2020-12-04] MEDS: Lidocaine 5% Patch TD PRN (17:28)
[2020-12-04] MEDS: Atorvastatin Calcium 10 MG TAB PO SCH (21:41)
[2020-12-04] MEDS: OXcarbazepine 300 MG TAB PO SCH (21:42)
[2020-12-05] MEDS: Acetaminophen 325 MG TAB PO PRN ×2 (00:49→14:06)
[2020-12-05] MEDS: Levothyroxine Sodium 75 MCG TAB PO SCH (05:49)
--- NOTE | 2020-12-05 06:06 | PDOC.FM ---
- Subjective Subjective: Patient reports continued headache throughout hospitalization. Says headache fluctuates in severity depending on BP. Associated with R eye twitching - chronic. Denies chest pain, SOB, palpitations, nausea and abdominal pain. Reports mild LE edema overnight. Has hx of recurrent LE edema requiring Lasix intermittently. - Objective MAR Reviewed: Yes Vital Signs & Weight: Vital Signs (12 hours) Temp Pulse Resp BP Pulse Ox 12/05/20 04:00 97.6 F 84 24 H 200/95 H 97 12/05/20 00:00 81 173/83 H 12/04/20 21:41 86 12/04/20 20:00 98.6 F 86 18 142/86 H 97 Weight Weight 126.552 kg I&O: 12/03/20 12/04/20 12/05/20 06:59 06:59 06:59 Intake Total 970 Balance 970 Result Diagrams: 12/04/20 03:20 12/04/20 03:20 Phys Exam - Physical Examination Constitutional: NAD HEENT: moist MMs, sclera anicteric Neck: full ROM Respiratory: no wheezing, clear to auscultation bilateral Cardiovascular: RRR, no significant murmur Gastrointestinal: soft, non-tender, positive bowel sounds Musculoskeletal: edema present (2+ pitting edema up to knee bilaterally, nonpitting edema of hand bilaterally) Neurological: moves all 4 limbs Psychiatric: normal affect, A&O x 3 Skin: no rash Dx/Plan - Plan Plan: 60 yo F with hx of complete heart block s/p pacer, HTN and HLD who presents with dyspnea on exertion Acute on chronic heart failure -HEART score 5. -Admit to tele for cardiac monitoring -Indeterminate troponin of 0.036 -> .039 -> .02 -COVID neg -EKG: V paced, [place] 246ms -Echo: 35-40%, akinesis present concerning for old [place] vs. takotsubo cardiomyopathy -Nitro PRN, ASA daily -Dr. George, cardiology, was consulted: - Started entresto and spironolactone - L heart cath: no CAD, likely HTN CM - appreciate further recs -Lasix 40mg IV this am Dilated cardiomyopathy -Management per above HTN Elevated, has had some improvement. - continue home carvedilol 25 BID - increase home hydralazine from 50 BID to 100 BID - entresto, spironolactone added for HF which has improved BP some as well Hx of complete AV Block with Pacemaker -Interrogated in November in which nurse reports as normal -Monitor on telemetry Anxiety/Depression -Continue home meds Recent root canal -Continue home abx Hypothyroidism -Continue home meds dvt ppx: lovenox PCP: Dr. Cardenas Code: FULL Dispo: Home pending further medical management Addendum - Attending - Attending Attestation Date/Time: 12/05/20 3528 I personally evaluated the patient and discussed the management with Dr. Rodriguez. I agree with the History, Examination, Assessment and Plan documented above with any addition or exceptions noted below. Patient's bp is elevated. Will adjust oral meds. Still has some edema.
[2020-12-05] MEDS ORDERED: hydrALAZINE 20 MG/ML VIAL SLOW IVP SCH (06:15)
[2020-12-05] MEDS ORDERED: Loratadine 10 MG TAB PO PRN (08:12)
[2020-12-05] MEDS ORDERED: Furosemide 40 MG/4 ML VIAL SLOW IVP SCH (08:15)
[2020-12-05] MEDS ORDERED: hydrALAZINE 25 MG TAB PO SCH (09:00)
[2020-12-05] MEDS ORDERED: Non-Formulary Item 1 EACH (Fluoxetine Hcl [Prozac] 40 MG Capsule) PO SCH (09:00)
[2020-12-05] MEDS: DULoxetine 60 MG CAP PO SCH (09:41)
[2020-12-05] MEDS: Spironolactone 25 MG TAB PO SCH (09:42)
[2020-12-05] MEDS: Carvedilol 25 MG TAB PO SCH ×2 (09:42→21:59)
[2020-12-05] MEDS: OXcarbazepine 300 MG TAB PO SCH ×2 (09:42→21:59)
[2020-12-05] MEDS: Aspirin Chewable 81 MG TAB PO SCH (09:44)
[2020-12-05] MEDS: FLUoxetine HCl 20 MG CAP PO SCH (09:49)
[2020-12-05] MEDS: Cholecalciferol 1,000 UNITS (25 MCG) TAB PO SCH (09:49)
[2020-12-05 11:19] LABS: #Eosinphils 0.2 thou/uL (0.0-0.7); #Lymphocytes 1.1 thou/uL (1.20-3.40); #Monocytes 0.4 thou/uL (0.11-0.59); %Basophils 0.4 % (0.0-1.0); %Eosinophils 3.7 % (0.0-10.0); %Lymphocytes 16.4 % (21.0-51.0); %Monocytes 5.2 % (0.0-10.0); %Neutrophils 74.3 % (42.0-75.0); Mean Corpuscular HGB CONC 33.2 g/dL (32.0-36.0); Mean Corpuscular Hemoglobin 31.1 pg (27.0-31.0); Mean Corpuscular Volume 93.7 fL (78.0-98.0); Mean Platelet Volume 10.9 fL (7.4-10.4); Platelet Count 209 thou/uL (130-400); RBC Distribution Width 11.8 % (11.5-14.5); Red Blood Cell (RBC) Count 4.18 mill/uL (4.20-5.40); White Blood Cell (WBC) Count 6.7 thou/uL (4.8-10.8)
[2020-12-05 11:44] LABS: Anion Gap 17 mmol/L (10-20); BUN (Urea Nitrogen) 8 mg/dL (9.8-20.1); Calc. Creatinine Clearance 174 mL/min (70-130); Calcium 9.4 mg/dL (7.8-10.44); Carbon Dioxide 24 mmol/L (23-31); Chloride 98 mmol/L (98-107); Glucose 130 mg/dL (80-115); Potassium 3.9 mmol/L (3.5-5.1); Sodium 135 mmol/L (136-145)
[2020-12-05] MEDS ORDERED: hydrALAZINE 20 MG/ML VIAL SLOW IVP PRN (15:53)
--- NOTE | 2020-12-05 16:54 | PDOC.CPN ---
- Subjective Date: 12/05/20 Time: 16:52 Interval history: She is doign well. She has headaches when her BP is high and has been having a lot highs and normals in the last few days. - Review of Systems General: denies: fever/chills, weight/appetite/sleep changes, night sweats, fatigue Respiratory: denies: cough, congestion, shortness of breath, exercise intolerance Cardiovascular: denies: chest pain, palpitation, edema, paroxysmal nocturnal dyspnea, orthopnea Gastrointestinal: denies: nausea, vomiting, diarrhea, constipation, abd pain, GI bleeding Musculoskeletal: reports: pain. denies: tenderness, stiffness, swelling, arthritis/arthralgias Neurological: denies: numbness, syncope, seizure, weakness - Objective Allergies/Adverse Reactions: Allergies Allergy/AdvReac Type Severity Reaction Status Date / Time Penicillins Allergy Verified 02/08/20 02:53 Sulfa (Sulfonamide Allergy Verified 02/08/20 02:53 Antibiotics) Visit Medications: Current Medications Acetaminophen (Acetaminophen 325 Mg Tab) 650 mg PO Q6H PRN PRN Reason: Fever/Mild Pain Last Admin: 12/05/20 14:06 Dose: 650 mg Documented by: Acetaminophen/Codeine Phosphate (Acetaminophen/Codeine 30-300mg Tablet) 1 tab PO Q4H PRN PRN Reason: Mild Pain (1-3) Aspirin (Aspirin Chewable 81 Mg Tab) 81 mg PO DAILY [facility] Last Admin: 12/05/20 09:44 Dose: 81 mg Documented by: Atorvastatin Calcium (Atorvastatin Calcium 10 Mg Tab) 10 mg PO HS [facility] Last Admin: 12/04/20 21:41 Dose: 10 mg Documented by: Bisacodyl (Bisacodyl 5 Mg Tab) 10 mg PO DAILYPRN PRN PRN Reason: Constipation Last Admin: 12/02/20 21:17 Dose: 10 mg Documented by: Carvedilol (Carvedilol 25 Mg Tab) 25 mg PO BID [facility] Last Admin: 12/05/20 09:42 Dose: 25 mg Documented by: Cholecalciferol (Cholecalciferol 1,000 Units (25 Mcg) Tab) 1,000 units PO DAILY [facility] Last Admin: 12/05/20 09:49 Dose: 1,000 units Documented by: Duloxetine HCl (Duloxetine 60 Mg Cap) 120 mg PO DAILY [facility] Last Admin: 12/05/20 09:41 Dose: 120 mg Documented by: Fluoxetine HCl (Fluoxetine Hcl 20 Mg Cap) 40 mg PO DAILY [facility] Last Admin: 12/05/20 09:49 Dose: 40 mg Documented by: Hydralazine HCl (Hydralazine 25 Mg Tab) 50 mg PO BID [facility] Hydralazine HCl (Hydralazine 20 Mg/Ml Vial) 10 mg SLOW IVP Q4H PRN PRN Reason: SBP GREATER THAN 160 Levothyroxine Sodium (Levothyroxine Sodium 75 Mcg Tab) 75 mcg PO 0600 [facility] Last Admin: 12/05/20 05:49 Dose: 75 mcg Documented by: Lidocaine (Lidocaine 5% Patch) 2 patch TD DAILYPRN PRN PRN Reason: Mild-Moderate Pain (1-5) Last Admin: 12/04/20 17:28 Dose: 2 patch Documented by: Loratadine (Loratadine 10 Mg Tab) 10 mg PO DAILYPRN PRN PRN Reason: Allergies Oxcarbazepine (Oxcarbazepine 300 Mg Tab) 300 mg PO BID [facility] Last Admin: 12/05/20 09:42 Dose: 300 mg Documented by: Pantoprazole Sodium (Pantoprazole 40 Mg Tab) 40 mg PO DAILY [facility] Last Admin: 12/05/20 09:42 Dose: 40 mg Documented by: Polyethylene Glycol (Polyethylene Glycol 3350 17 Gm Packet) 17 gm PO DAILYPRN PRN PRN Reason: Constipation Sacubitril/Valsartan (Sacubitril 24mg/Valsartan 26mg Tab) 2 tab PO BID [facility] Senna (Senokot 8.6 Mg Tab) 2 tab PO HSPRN PRN PRN Reason: Constipation Last Admin: 11/30/20 22:59 Dose: 2 tab Documented by: Sodium Chloride (Flush - Normal Saline 10 Ml Syringe) 10 ml IVF Q12HR PRN PRN Reason: Saline Flush Sodium Chloride (Flush - Normal Saline 10 Ml Syringe) 10 ml IVF PRN PRN PRN Reason: Saline Flush Spironolactone (Spironolactone 25 Mg Tab) 25 mg PO QA[facility] Vital Signs & Weight: Vital Signs Temp Pulse Resp BP Pulse Ox 12/05/20 15:50 97.9 F 75 18 180/118 H 97 12/05/20 11:45 98.2 F 79 18 120/66 95 12/05/20 07:16 97.9 F 76 18 194/97 H 95 12/05/20 06:15 84 Weight 279 lb - Physical Exam General: alert & oriented x3 HEENT: mucus membranes moist Neck: supple neck Cardiac: regular rate and rhythm Lungs: normal breath sounds Neuro: grossly intact Abdomen: active bowel sounds Extremities: 1+ LE edema Skin: clear Musculoskeletal: no pain - Labs Result Diagrams: 12/05/20 10:54 12/05/20 10:54 Troponin/CKMB CK-MB (CK-2) 2.5 ng/mL (0-6.6) 11/30/20 09:45 Troponin I 0.021 ng/mL (< 0.028) 11/30/20 16:06 - Telemetry Sinus rhythms and dysrhythmias: sinus rhythm - Assessment/Plan Assessment/Plan: 1. Non ischemic CM 2. Hypertension 3. Normal coronaries 4. Presence of PPM due to CHB 5. HLP PLAN: - Would keep Hydralazine at 50 mg BID and use half a tablet PRN for sBP>185 or DBP>120 - Will up titrate Entresto to 48/52 BID and will increase aldactone to 25 mg daily. - Discharge home tomorrow am and follow up with Dr. Eaton in 2-4 weeks for up titration of BP meds.
[2020-12-05] MEDS: Acetaminophen/Codeine 30-300mg Tablet PO PRN (18:31)
[2020-12-05] MEDS: Atorvastatin Calcium 10 MG TAB PO SCH (21:58)
[2020-12-05] MEDS: hydrALAZINE 25 MG TAB PO SCH (21:59)
[2020-12-06] MEDS: Acetaminophen/Codeine 30-300mg Tablet PO PRN (03:14)
[2020-12-06 04:49] LABS: #Eosinphils 0.3 thou/uL (0.0-0.7); #Lymphocytes 1.2 thou/uL (1.20-3.40); #Monocytes 0.5 thou/uL (0.11-0.59); #Neutrophils 5.1 thou/uL (1.40-6.50); %Basophils 0.1 % (0.0-1.0); %Eosinophils 4.4 % (0.0-10.0); %Lymphocytes 17.3 % (21.0-51.0); %Monocytes 7.1 % (0.0-10.0); %Neutrophils 71.1 % (42.0-75.0); Hemoglobin 12.4 g/dL (12.0-16.0); Mean Corpuscular HGB CONC 33.2 g/dL (32.0-36.0); Mean Corpuscular Hemoglobin 30.4 pg (27.0-31.0); Mean Corpuscular Volume 91.7 fL (78.0-98.0); Mean Platelet Volume 10.3 fL (7.4-10.4); Platelet Count 233 thou/uL (130-400); RBC Distribution Width 11.7 % (11.5-14.5); Red Blood Cell (RBC) Count 4.07 mill/uL (4.20-5.40); White Blood Cell (WBC) Count 7.2 thou/uL (4.8-10.8)
[2020-12-06 05:11] LABS: Anion Gap 14 mmol/L (10-20); BUN (Urea Nitrogen) 9 mg/dL (9.8-20.1); Calc. Creatinine Clearance 187 mL/min (70-130); Calcium 8.6 mg/dL (7.8-10.44); Carbon Dioxide 26 mmol/L (23-31); Chloride 94 mmol/L (98-107); Glucose 131 mg/dL (80-115); Potassium 3.6 mmol/L (3.5-5.1); Sodium 130 mmol/L (136-145)
[2020-12-06] MEDS: Levothyroxine Sodium 75 MCG TAB PO SCH (05:23)
--- NOTE | 2020-12-06 06:25 | PDOC.FM ---
- Subjective Subjective: Headache improved overnight, associated with improved BP control . Denies chest pain, SOB, palpitations, nausea and abdominal pain. Is ready to go home. - Objective MAR Reviewed: Yes Vital Signs & Weight: Vital Signs (12 hours) Temp Pulse Resp BP BP Pulse Ox 12/06/20 03:12 98.5 F 77 20 167/87 H 93 L 12/06/20 00:00 81 139/71 12/05/20 21:59 76 12/05/20 20:00 98.4 F 76 18 150/80 H 96 12/05/20 18:32 80 169/80 H Weight Weight 126.325 kg I&O: 12/04/20 12/05/20 12/06/20 06:59 06:59 06:59 Intake Total 1520 Balance 1520 Result Diagrams: 12/06/20 04:20 12/06/20 04:20 Phys Exam - Physical Examination Constitutional: NAD HEENT: moist MMs, sclera anicteric Neck: full ROM Respiratory: no wheezing, clear to auscultation bilateral Cardiovascular: RRR, no significant murmur Gastrointestinal: soft, non-tender, positive bowel sounds Musculoskeletal: no edema Neurological: moves all 4 limbs Psychiatric: normal affect, A&O x 3 Skin: no rash Dx/Plan - Plan Plan: 60 yo F with hx of complete heart block s/p pacer, HTN and HLD who presents with dyspnea on exertion Acute on chronic heart failure -HEART score 5 -Admit to tele for cardiac monitoring -Indeterminate troponin of 0.036 -> .039 -> .02 -COVID neg -EKG: V paced, [place] 246ms -Echo: 35-40%, akinesis present concerning for old NC vs. takotsubo cardiomyopathy -Nitro PRN, ASA daily -Dr. George, cardiology, was consulted: - Started entresto and spironolactone - L heart cath: no CAD, likely HTN CM - F/u with Lammoglia in 2-4 weeks for further BP med titration Dilated cardiomyopathy -Management per above HTN Elevated, has had some improvement. - continue home carvedilol 25 BID and hydralazine 50mg BID - entresto, spironolactone added for HF which has improved BP - Hydralazine 25mg PRN for SBP > 185, DBP > 120 Hx of complete AV Block with Pacemaker -Interrogated in November in which nurse reports as normal -Monitor on telemetry Anxiety/Depression -Continue home meds Recent root canal -Continue home abx Hypothyroidism -Continue home meds dvt ppx: lovenox PCP: Dr. Cardenas Code: FULL Dispo: Home today. F/u with Dr. Eaton in 2-4 weeks Addendum - Attending - Attending Attestation Date/Time: 12/06/20 3052 I personally evaluated the patient and discussed the management with Dr. Rodriguez. I agree with the History, Examination, Assessment and Plan documented above with any addition or exceptions noted below. On GDT, will plan on dc as she appears to be relatively euvolemic. Return precautions discussed and needs to f/u in 1-2 days.
[2020-12-06] MEDS ORDERED: Spironolactone 25 MG TAB PO SCH (08:00)
[2020-12-06] MEDS ORDERED: hydrALAZINE 20 MG/ML VIAL SLOW IVP PRN (08:22)
[2020-12-06] MEDS: FLUoxetine HCl 20 MG CAP PO SCH (08:52)
[2020-12-06] MEDS: DULoxetine 60 MG CAP PO SCH (08:52)
[2020-12-06] MEDS: hydrALAZINE 25 MG TAB PO SCH (08:52)
[2020-12-06] MEDS: OXcarbazepine 300 MG TAB PO SCH (08:52)
[2020-12-06] MEDS: Cholecalciferol 1,000 UNITS (25 MCG) TAB PO SCH (08:53)
[2020-12-06] MEDS: Carvedilol 25 MG TAB PO SCH (08:53)
[2020-12-06] MEDS: Aspirin Chewable 81 MG TAB PO SCH (08:53)
[2020-12-06 11:26] VITALS: BP 162/97; TEMP 97.9
[2020-12-06] MEDS ORDERED: FLU VACC QS2020-21(6MOS UP)/PF 60 MCG/0.5 ML SYRINGE IM ONE (13:00)
[2020-12-06] MEDS: Lidocaine 5% Patch TD PRN (13:46)
--- NOTE | 2020-12-07 13:01 | DIS ---
DATE OF ADMISSION: 12/02/2020 DATE OF DISCHARGE: 12/06/2020 RESIDENT: Esmer Rodriguez MD ADMITTING ATTENDING: Rene Mahmood MD DISCHARGE ATTENDING: Darshan Howe MD CONSULTATION: Dr. George, Cardiology. PROCEDURES: 1. Echo showed ejection fraction of 35% to 40% with akinesis present, concerning for an old RI versus Takotsubo cardiomyopathy. 2. Left heart catheterization completed on 12/02/2020, showed no ischemia, no PAD, likely hypertensive cardiomyopathy. PRIMARY DIAGNOSES: 1. Acute on chronic heart failure. 2. Dilated cardiomyopathy. SECONDARY DIAGNOSES: 1. Hypertension. 2. History of complete atrioventricular block with pacemaker. 3. Anxiety. 4. Depression. 5. Recent root canal. 6. Hypothyroidism. DISCHARGE MEDICATIONS: 1. Hydralazine 50 mg p.o. b.i.d. 2. Carvedilol 25 mg p.o. b.i.d. 3. Duloxetine 120 mg p.o. daily. 4. Levothyroxine 75 mcg p.o. daily. 5. Lipitor 10 mg p.o. at bedtime. 6. Fluoxetine 40 mg p.o. daily. 7. Vitamin D3 of 1000 units p.o. daily. 8. Spironolactone 25 mg p.o. q.a.m. 9. Hydralazine 25 mg p.o. p.r.n. if systolic blood pressure is greater than 185 or diastolic blood pressure is greater than 120. 10. Aspirin 81 mg daily. 11. Entresto 24-26, two tablets p.o. b.i.d. 12. Magnesium oxide 400 mg p.o. b.i.d. 13. Ultram 50 mg p.o. at bedtime p.r.n. 14. Trileptal 300 mg p.o. b.i.d. DISCONTINUED MEDICATIONS: None. HISTORY OF PRESENT ILLNESS/HOSPITAL COURSE: The patient is a 60-year-old female with a history of AICD, hypertension, and hyperlipidemia, who presented with dyspnea on exertion for the past three days. Initial troponin was indeterminate at 0.036, HEART score was 5, therefore the patient was admitted to tele inpatient for cardiac monitoring. Troponin was trended and remained indeterminate, had a repeat 0.039 to 0.02. EKG in the ED was V paced, RI 246. Echo was completed and showed an ejection fraction of 35% to 40% with akinesis present. The patient was diagnosed with acute on chronic heart failure by Dr. George, Cardiology, took the patient to left heart catheterization on 12/02/2020 that showed no CAD with a likely hypertensive cardiomyopathy. He started Entresto and spironolactone for CHF. The patient's blood pressure remained consistently elevated during hospitalization. She was continued on her home carvedilol 25 mg b.i.d. and hydralazine 50 mg b.i.d. Hydralazine 25 mg p.r.n. was added for a systolic blood pressure greater than 185 or diastolic blood pressure greater than 120. The patient was instructed to follow up with Dr. Eaton in 2 to 4 weeks for further blood pressure medication titration. She was deemed stable for discharge home on 12/06/2020. She will follow up with her PCP, Dr. Cardenas within one week and Dr. Eaton in 2 to 4 weeks. DISPOSITION: Stable. DISCHARGE INSTRUCTIONS: 1. Location: Home. 2. Diet: Heart healthy, consistent carb. 3. Activity: As tolerated. 4. Follow up with Dr. Cardenas, PCP, within one week. Also follow up with Dr. Eaton, Cardiology, within 2 to 4 weeks. Job ID: [id number] [facility]
[2020-12-13 00:08] LABS: Metanephrine,Plasma 22.3 pg/mL (0.0-88.0); Normetanephrine,Pl 178.1 pg/mL (0.0-191.8)
== END 2020-12-06 16:02 | disposition home or self-care (01) | DRG 287 ==
LOC: ERS 08:57 → 2NO 11:08 → OBSVTOIN 12-02 17:21
PROVIDERS: ADMIT Family Medicine; ATTEND Family Medicine
PROC: 8E0ZXY6 Isolation (ICD-10-PCS; 2020-11-30)
PROC: 4B02XSZ Measurement of Cardiac Pacemaker, External Approach (ICD-10-PCS; 2020-12-01)
PROC: 4A023N7 Measurement of Cardiac Sampling and Pressure, Left Heart, Percutaneous Approach (ICD-10-PCS; principal; 2020-12-02)
PROC: B2111ZZ Fluoroscopy of Multiple Coronary Arteries using Low Osmolar Contrast (ICD-10-PCS; 2020-12-02)
DX: I11.0 Hypertensive heart disease with heart failure (principal); Z68.42 Body mass index [BMI] 45.0-49.9, adult; Z20.822 Contact with and (suspected) exposure to COVID-19; I50.23 Acute on chronic systolic (congestive) heart failure; I42.0 Dilated cardiomyopathy; F41.9 Anxiety disorder, unspecified; F32.9 Major depressive disorder, single episode, unspecified; E03.9 Hypothyroidism, unspecified; I44.0 Atrioventricular block, first degree; J42 Unspecified chronic bronchitis; I42.8 Other cardiomyopathies; E66.9 Obesity, unspecified; Z79.899 Other long term (current) drug therapy; Z95.0 Presence of cardiac pacemaker; Z90.710 Acquired absence of both cervix and uterus; Z83.3 Family history of diabetes mellitus; Z82.49 Family history of ischemic heart disease and other diseases of the circulatory system; Z79.82 Long term (current) use of aspirin; Z88.0 Allergy status to penicillin; Z88.2 Allergy status to sulfonamides
CPT/HCPCS: 0240U; 36415; 71045; 80048; 80053; 80061; 82553; 83036; 83735; 83835; 83880; 84145; 84443; 84484; 85025; 90471; 90662; 93005; 93306; 93458; 93798; 94760; 96374; 96375; 97139; 99152; 99153; G0008; G0378; J0360; J1644; J1940; J2250; J3010; Q0162; Q9967

== ENCOUNTER 2021-01-05 00:52 | Emergency (ER) | payer BC ==
[2021-01-05] MEDS ORDERED: Oxymetazoline HCl 0.05% (30 ML BOT) ONE (01:20)
== END 2021-01-05 02:24 | disposition home or self-care (01) ==
LOC: ERS 00:52
DX: R04.0 Epistaxis (principal); E03.9 Hypothyroidism, unspecified; E78.5 Hyperlipidemia, unspecified; I10 Essential (primary) hypertension; I48.91 Unspecified atrial fibrillation; Z79.01 Long term (current) use of anticoagulants; Z79.899 Other long term (current) drug therapy
CPT/HCPCS: 99283

== ENCOUNTER 2021-08-06 12:39 | Inpatient (IN) | payer BC ==
[2021-08-06 13:36] LABS: #Lymphocytes 1.4 thou/uL (1.20-3.40); #Monocytes 0.6 thou/uL (0.11-0.59); #Neutrophils 9.6 thou/uL (1.40-6.50); %Basophils 0.1 % (0.0-1.0); %Eosinophils 0.4 % (0.0-10.0); %Monocytes 4.9 % (0.0-10.0); %Neutrophils 82.7 % (42.0-75.0); Hemoglobin 14.2 g/dL (12.0-16.0); Mean Corpuscular HGB CONC 34.3 g/dL (32.0-36.0); Mean Corpuscular Hemoglobin 30.5 pg (27.0-31.0); Mean Corpuscular Volume 88.8 fL (78.0-98.0); Mean Platelet Volume 8.9 fL (7.4-10.4); Platelet Count 301 thou/uL (130-400); RBC Distribution Width 11.2 % (11.5-14.5); Red Blood Cell (RBC) Count 4.65 mill/uL (4.20-5.40); White Blood Cell (WBC) Count 11.6 thou/uL (4.8-10.8)
[2021-08-06] MEDS ORDERED: Ondansetron PF 4 MG/2 ML Vial ONE (13:57)
[2021-08-06 13:58] LABS: ALT (SGPT) 27 U/L (8-55); AST (SGOT) 20 U/L (5-34); Albumin 4.5 g/dL (3.4-4.8); Alkaline Phosphatase 115 U/L (40-110); Anion Gap 15 mmol/L (10-20); BUN (Urea Nitrogen) 10 mg/dL (9.8-20.1); Bilirubin, Total 0.4 mg/dL (0.2-1.2); Calc. Creatinine Clearance 0 mL/min (70-130); Carbon Dioxide 28 mmol/L (23-31); Chloride 94 mmol/L (98-107); Glucose 128 mg/dL (80-115); Lipase 4 U/L (8-78); Potassium 4.6 mmol/L (3.5-5.1); Protein, Total 7.5 g/dL (5.8-8.1); Sodium 132 mmol/L (136-145)
[2021-08-06] MEDS ORDERED: Labetalol HCl 100 MG/20 ML VIAL ONE (14:36)
[2021-08-06 14:57] LABS: CKMB 5.4 ng/mL (0-6.6)
[2021-08-06] MEDS ORDERED: Iopamidol-370 76% 500 ML 1 ML ONE (15:36)
[2021-08-06 16:16] LABS: Bacteria/HPF 3+ HPF (None Seen); Bilirubin Negative (Negative); Blood, Urine Trace (Negative); Clarity Turbid (Clear); Glucose, Urine (Dipstick) 30 mg/dL (Negative); Ketone, Urine Trace mg/dL (Negative); Leukocyte Negative Leu/uL (Negative); Nitrite Negative (Negative); Protein, Urine (Dipstick) 600 mg/dL (Neg-Trace); RBC/HPF 0-3 HPF (0-3); Specific Gravity, Urine 1.031 (1.002-1.036); Squamous Epithelial 21-50 HPF (0-3); Urobilinogen Normal mg/dL (Less than 2); WBC/HPF 0-3 HPF (0-3); pH, Urine 6.5 (5.0-9.0)
[2021-08-06] MEDS ORDERED: Acetaminophen 500 MG TAB ONE (16:33)
[2021-08-06] MEDS ORDERED: Nitroglycerin 2% Ointment 1 INCH/1 GM Packet ONE (16:33)
[2021-08-06] MEDS ORDERED: Nitroglycerin 0.4 MG TAB 1 EACH ONE (16:34)
[2021-08-06] MEDS ORDERED: Ondansetron PF 4 MG/2 ML Vial IVP PRN (17:22)
[2021-08-06] MEDS ORDERED: Ondansetron ODT 4 MG TAB PO PRN (17:22)
[2021-08-06] MEDS ORDERED: Labetalol HCl 100 MG/20 ML VIAL SLOW IVP PRN (17:30)
[2021-08-06 18:00] LABS: Troponin I 0.052 ng/mL (< 0.028)
[2021-08-06 18:27] LABS: SARS-CoV-2 NAA Rapid Test Not Detected (NotDetected)
[2021-08-06 18:53] LABS: Magnesium 1.2 mg/dL (1.6-2.6)
[2021-08-06] MEDS ORDERED: Magnesium Sulfate 3 GM in Sodium Chloride 0.9% 100 ML IVPB SCH (19:15)
[2021-08-06] MEDS: OXcarbazepine 300 MG TAB PO SCH (20:44)
[2021-08-06] MEDS: Carvedilol 25 MG TAB PO SCH (20:44)
[2021-08-06] MEDS: Scopolamine 1.5 mg/72 hour Patch TD SCH (20:44)
[2021-08-06] MEDS: Apixaban 5 MG TAB PO SCH (20:44)
[2021-08-06] MEDS ORDERED: Acetaminophen 325 MG TAB ONE (20:48)
[2021-08-06] MEDS: Acetaminophen 325 MG TAB PO PRN (20:50)
[2021-08-06 20:51] LABS: Troponin I 0.052 ng/mL (< 0.028)
[2021-08-07] MEDS: Acetaminophen 325 MG TAB PO PRN ×3 (03:46→21:21)
[2021-08-07 05:48] LABS: #Eosinphils 0.2 thou/uL (0.0-0.7); #Lymphocytes 1.5 thou/uL (1.20-3.40); #Monocytes 0.6 thou/uL (0.11-0.59); #Neutrophils 5.2 thou/uL (1.40-6.50); %Basophils 0.4 % (0.0-1.0); %Eosinophils 2.4 % (0.0-10.0); %Lymphocytes 19.8 % (21.0-51.0); %Monocytes 8.5 % (0.0-10.0); Hemoglobin 12.8 g/dL (12.0-16.0); Mean Corpuscular HGB CONC 32.9 g/dL (32.0-36.0); Mean Corpuscular Hemoglobin 29.5 pg (27.0-31.0); Mean Corpuscular Volume 89.6 fL (78.0-98.0); Mean Platelet Volume 9.1 fL (7.4-10.4); Platelet Count 256 thou/uL (130-400); RBC Distribution Width 11.4 % (11.5-14.5); Red Blood Cell (RBC) Count 4.34 mill/uL (4.20-5.40); White Blood Cell (WBC) Count 7.5 thou/uL (4.8-10.8)
[2021-08-07 06:07] LABS: ALT (SGPT) 27 U/L (8-55); AST (SGOT) 23 U/L (5-34); Alkaline Phosphatase 96 U/L (40-110); Anion Gap 15 mmol/L (10-20); BUN (Urea Nitrogen) 15 mg/dL (9.8-20.1); Bilirubin, Total 0.4 mg/dL (0.2-1.2); Calc. Creatinine Clearance 128 mL/min (70-130); Calcium 9.6 mg/dL (7.8-10.44); Carbon Dioxide 25 mmol/L (23-31); Chloride 97 mmol/L (98-107); Globulin 2.5 g/dL (2.4-3.5); Glucose 131 mg/dL (80-115); Magnesium 1.8 mg/dL (1.6-2.6); Potassium 3.7 mmol/L (3.5-5.1); Protein, Total 6.5 g/dL (5.8-8.1); Sodium 133 mmol/L (136-145)
[2021-08-07] MEDS: Carvedilol 25 MG TAB PO SCH ×2 (08:41→21:21)
[2021-08-07] MEDS: Furosemide 40 MG TAB PO SCH (08:41)
[2021-08-07] MEDS: Spironolactone 25 MG TAB PO SCH (08:41)
[2021-08-07] MEDS: Apixaban 5 MG TAB PO SCH (08:41)
[2021-08-07] MEDS: DULoxetine 60 MG CAP PO SCH (08:43)
[2021-08-07] MEDS: Valsartan 80 MG TAB PO SCH (08:43)
[2021-08-07] MEDS ORDERED: Morphine 2 MG/ML VIAL ONE (10:33)
[2021-08-07] MEDS: Ketorolac Tromethamine 30 MG/ML VIAL IVP SCH ×2 (10:40→12:06)
[2021-08-07] MEDS ORDERED: Morphine 4 MG/ML VIAL SLOW IVP SCH (10:45)
[2021-08-07] MEDS ORDERED: Ketorolac Tromethamine 30 MG/ML VIAL IVP PRN (11:00)
[2021-08-07] MEDS: OXcarbazepine 300 MG TAB PO SCH ×2 (11:28→21:30)
[2021-08-07] MEDS: Lactated Ringer's 1,000 ML IV SCH ×2 (13:42→21:22)
[2021-08-07] MEDS ORDERED: Ondansetron PF 4 MG/2 ML Vial IVP PRN (23:45)
[2021-08-07] MEDS ORDERED: Ondansetron ODT 4 MG TAB SL PRN (23:45)
[2021-08-08] MEDS: Lactated Ringer's 1,000 ML IV SCH ×2 (04:02→17:23)
[2021-08-08 06:17] LABS: #Basophils 0.1 thou/uL (0.0-0.2); #Eosinphils 0.3 thou/uL (0.0-0.7); #Lymphocytes 1.6 thou/uL (1.20-3.40); #Monocytes 0.5 thou/uL (0.11-0.59); #Neutrophils 4.4 thou/uL (1.40-6.50); %Basophils 1.2 % (0.0-1.0); %Eosinophils 4.4 % (0.0-10.0); %Lymphocytes 23.5 % (21.0-51.0); %Monocytes 6.5 % (0.0-10.0); %Neutrophils 64.4 % (42.0-75.0); Hemoglobin 11.9 g/dL (12.0-16.0); Mean Corpuscular HGB CONC 33.2 g/dL (32.0-36.0); Mean Corpuscular Hemoglobin 29.9 pg (27.0-31.0); Mean Corpuscular Volume 90.2 fL (78.0-98.0); Mean Platelet Volume 8.1 fL (7.4-10.4); Platelet Count 239 thou/uL (130-400); RBC Distribution Width 11.4 % (11.5-14.5); Red Blood Cell (RBC) Count 3.97 mill/uL (4.20-5.40); White Blood Cell (WBC) Count 6.9 thou/uL (4.8-10.8)
[2021-08-08 06:42] LABS: ALT (SGPT) 29 U/L (8-55); AST (SGOT) 24 U/L (5-34); Albumin 3.7 g/dL (3.4-4.8); Alkaline Phosphatase 86 U/L (40-110); Anion Gap 11 mmol/L (10-20); BUN (Urea Nitrogen) 12 mg/dL (9.8-20.1); Bilirubin, Total 0.3 mg/dL (0.2-1.2); Calc. Creatinine Clearance 150 mL/min (70-130); Calcium 8.9 mg/dL (7.8-10.44); Carbon Dioxide 26 mmol/L (23-31); Chloride 98 mmol/L (98-107); Globulin 2.4 g/dL (2.4-3.5); Glucose 115 mg/dL (80-115); Potassium 3.9 mmol/L (3.5-5.1); Protein, Total 6.1 g/dL (5.8-8.1); Sodium 131 mmol/L (136-145)
[2021-08-08] MEDS: Carvedilol 25 MG TAB PO SCH ×2 (08:14→21:06)
[2021-08-08] MEDS ORDERED: Bupivacaine 0.25% HCL 30 ML VIAL ONE (08:59)
[2021-08-08] MEDS ORDERED: Lidocaine 1% w/Epinephrine 1:100K 20 ML VIAL ONE (08:59)
[2021-08-08] MEDS ORDERED: Levofloxacin 500 mg/D5W 100 ml Premix Bag ONE (09:03)
[2021-08-08] MEDS ORDERED: Fentanyl 100 MCG/2 ML VIAL ONE ×3 (09:20→11:26)
[2021-08-08] MEDS ORDERED: SUGAMMADEX SODIUM 200 MG/2 ML VIAL ONE (09:20)
[2021-08-08] MEDS ORDERED: Midazolam HCl 2 mg/2 ml Vial ONE (09:20)
[2021-08-08] MEDS ORDERED: Ketorolac Tromethamine 30 MG/ML VIAL ONE (09:41)
[2021-08-08] MEDS ORDERED: PROPOFOL 200 MG/20 ML VIAL ONE (09:41)
[2021-08-08] MEDS ORDERED: ePHEDrine 50 MG/ML VIAL ONE (09:41)
[2021-08-08] MEDS ORDERED: Dexamethasone 20 MG/5 ML VIAL ONE (09:41)
[2021-08-08] MEDS ORDERED: Rocuronium Bromide 10 MG/ML (10ML VIAL) ONE (09:41)
[2021-08-08] MEDS ORDERED: Glycopyrrolate 0.2 MG/ML 5 ML SYRINGE ONE (09:41)
[2021-08-08] MEDS ORDERED: Ondansetron PF 4 MG/2 ML Vial ONE ×2 (09:41→11:03)
[2021-08-08] MEDS ORDERED: Lidocaine 1% PF 5 ML VIAL ONE (09:41)
[2021-08-08] MEDS ORDERED: Ondansetron HCl/PF 4 MG/2 ML Vial IVP PRN (10:51)
[2021-08-08] MEDS ORDERED: Promethazine HCl 25 MG/ML VIAL IM PRN (10:51)
[2021-08-08] MEDS ORDERED: Promethazine HCl 25 MG/ML VIAL IVPB PRN (10:51)
[2021-08-08] MEDS ORDERED: Lactated Ringer's 1,000 ML IV SCH (11:21)
[2021-08-08] MEDS: DULoxetine 60 MG CAP PO SCH (12:31)
[2021-08-08] MEDS: OXcarbazepine 300 MG TAB PO SCH ×2 (12:32→21:06)
[2021-08-08] MEDS: HYDROcodone/Acetaminophen 7.5/325 mg Tablet PO PRN ×2 (14:52→21:07)
[2021-08-08] MEDS: Furosemide 40 MG TAB PO SCH (14:54)
[2021-08-08] MEDS: Spironolactone 25 MG TAB PO SCH (14:54)
[2021-08-08] MEDS: Valsartan 80 MG TAB PO SCH (17:19)
[2021-08-08] MEDS: Benzonatate 100 MG CAP PO PRN (18:31)
[2021-08-08] MEDS: Ketorolac Tromethamine 30 MG/ML VIAL IVP PRN (23:34)
[2021-08-09] MEDS ORDERED: Morphine 4 MG/ML VIAL SLOW IVP SCH (03:30)
[2021-08-09 07:15] LABS: #Lymphocytes 1.2 thou/uL (1.20-3.40); #Monocytes 0.9 thou/uL (0.11-0.59); #Neutrophils 11.1 thou/uL (1.40-6.50); %Eosinophils 0.1 % (0.0-10.0); %Lymphocytes 8.8 % (21.0-51.0); %Monocytes 6.5 % (0.0-10.0); %Neutrophils 84.5 % (42.0-75.0); Hemoglobin 11.9 g/dL (12.0-16.0); Mean Corpuscular HGB CONC 33.2 g/dL (32.0-36.0); Mean Corpuscular Hemoglobin 30.5 pg (27.0-31.0); Mean Corpuscular Volume 91.8 fL (78.0-98.0); Mean Platelet Volume 9.2 fL (7.4-10.4); Platelet Count 251 thou/uL (130-400); RBC Distribution Width 11.4 % (11.5-14.5); Red Blood Cell (RBC) Count 3.91 mill/uL (4.20-5.40); White Blood Cell (WBC) Count 13.2 thou/uL (4.8-10.8)
[2021-08-09 07:18] LABS: ALT (SGPT) 42 U/L (8-55); AST (SGOT) 31 U/L (5-34); Albumin 3.8 g/dL (3.4-4.8); Alkaline Phosphatase 83 U/L (40-110); Anion Gap 12 mmol/L (10-20); BUN (Urea Nitrogen) 14 mg/dL (9.8-20.1); Bilirubin, Total 0.5 mg/dL (0.2-1.2); Calc. Creatinine Clearance 143 mL/min (70-130); Carbon Dioxide 26 mmol/L (23-31); Chloride 95 mmol/L (98-107); Globulin 2.6 g/dL (2.4-3.5); Glucose 113 mg/dL (80-115); Potassium 4.4 mmol/L (3.5-5.1); Protein, Total 6.4 g/dL (5.8-8.1); Sodium 129 mmol/L (136-145)
[2021-08-09] MEDS: HYDROcodone/Acetaminophen 7.5/325 mg Tablet PO PRN ×2 (08:25→17:56)
[2021-08-09] MEDS: Scopolamine 1.5 mg/72 hour Patch TD SCH (08:26)
[2021-08-09] MEDS: DULoxetine 60 MG CAP PO SCH (08:28)
[2021-08-09] MEDS: Furosemide 40 MG TAB PO SCH (08:32)
[2021-08-09] MEDS: Carvedilol 25 MG TAB PO SCH ×2 (08:32→20:51)
[2021-08-09] MEDS: Spironolactone 25 MG TAB PO SCH (08:32)
[2021-08-09] MEDS: OXcarbazepine 300 MG TAB PO SCH ×2 (09:23→20:51)
[2021-08-09] MEDS: Valsartan 80 MG TAB PO SCH (09:25)
[2021-08-09] MEDS: Morphine 4 MG/ML VIAL SLOW IVP PRN ×2 (09:25→11:37)
[2021-08-09 15:59] LABS: Troponin I Less than 0.010 ng/mL (< 0.028)
[2021-08-09] MEDS ORDERED: Furosemide 40 MG/4 ML VIAL SLOW IVP SCH (16:00)
[2021-08-09] MEDS ORDERED: HYDROcodone/Acetaminophen 5/325 mg Tablet PO PRN (19:34)
[2021-08-09] MEDS: Ketorolac Tromethamine 30 MG/ML VIAL IVP PRN (20:50)
[2021-08-10] MEDS: Benzonatate 100 MG CAP PO PRN ×2 (04:34→12:19)
[2021-08-10 05:11] VITALS: BMI 46.1
[2021-08-10 05:41] LABS: #Basophils 0.1 thou/uL (0.0-0.2); #Eosinphils 0.2 thou/uL (0.0-0.7); #Lymphocytes 1.4 thou/uL (1.20-3.40); #Monocytes 1.1 thou/uL (0.11-0.59); #Neutrophils 8.1 thou/uL (1.40-6.50); %Basophils 0.7 % (0.0-1.0); %Eosinophils 1.5 % (0.0-10.0); %Lymphocytes 12.9 % (21.0-51.0); %Monocytes 9.7 % (0.0-10.0); %Neutrophils 75.2 % (42.0-75.0); Mean Corpuscular HGB CONC 33.7 g/dL (32.0-36.0); Mean Corpuscular Hemoglobin 30.8 pg (27.0-31.0); Mean Corpuscular Volume 91.6 fL (78.0-98.0); Mean Platelet Volume 9.5 fL (7.4-10.4); Platelet Count 225 thou/uL (130-400); RBC Distribution Width 11.4 % (11.5-14.5); Red Blood Cell (RBC) Count 3.57 mill/uL (4.20-5.40); White Blood Cell (WBC) Count 10.8 thou/uL (4.8-10.8)
[2021-08-10 06:12] LABS: ALT (SGPT) 35 U/L (8-55); AST (SGOT) 20 U/L (5-34); Albumin 3.7 g/dL (3.4-4.8); Alkaline Phosphatase 77 U/L (40-110); Anion Gap 10 mmol/L (10-20); BUN (Urea Nitrogen) 18 mg/dL (9.8-20.1); Bilirubin, Total 0.5 mg/dL (0.2-1.2); Calc. Creatinine Clearance 125 mL/min (70-130); Calcium 8.6 mg/dL (7.8-10.44); Carbon Dioxide 28 mmol/L (23-31); Chloride 92 mmol/L (98-107); Globulin 2.5 g/dL (2.4-3.5); Glucose 112 mg/dL (80-115); Potassium 3.7 mmol/L (3.5-5.1); Protein, Total 6.2 g/dL (5.8-8.1); Sodium 126 mmol/L (136-145)
[2021-08-10] MEDS: OXcarbazepine 300 MG TAB PO SCH (09:04)
[2021-08-10] MEDS: Acetaminophen 325 MG TAB PO PRN (09:04)
[2021-08-10] MEDS: DULoxetine 60 MG CAP PO SCH (09:04)
[2021-08-10] MEDS: Furosemide 40 MG TAB PO SCH (09:06)
[2021-08-10] MEDS: Spironolactone 25 MG TAB PO SCH (09:06)
[2021-08-10] MEDS: Carvedilol 25 MG TAB PO SCH (09:06)
[2021-08-10] MEDS: Valsartan 80 MG TAB PO SCH (09:26)
[2021-08-10] MEDS ORDERED: HYDROcodone/Acetaminophen 5/325 mg Tablet PO PRN (10:57)
[2021-08-10 11:28] LABS: Sodium, Urine Less than 20 mmol/L (Not Available); Urea Nitrogen, Random Urine 752 mg/dl
[2021-08-10 16:03] VITALS: BP 136/63; TEMP 98.1
[2021-08-13] MEDS ORDERED: Ergocalciferol 1.25 MG(50,000 UNITS) CAP PO SCH (09:00)
== END 2021-08-10 16:40 | disposition home or self-care (01) | DRG 418 ==
LOC: ERS 12:39 → ERHOLD 16:47 → 3SE 23:27 → ERHOLD 23:31 → 3SE 08-07 00:03
PROVIDERS: ADMIT Family Medicine; ATTEND Family Medicine
PROC: 0FT44ZZ Resection of Gallbladder, Percutaneous Endoscopic Approach (ICD-10-PCS; principal; 2021-08-06)
PROC: 4B02XSZ Measurement of Cardiac Pacemaker, External Approach (ICD-10-PCS; 2021-08-09)
DX: K81.0 Acute cholecystitis (principal); I48.92 Unspecified atrial flutter; I16.1 Hypertensive emergency; I48.20 Chronic atrial fibrillation, unspecified; Z20.822 Contact with and (suspected) exposure to COVID-19; G47.33 Obstructive sleep apnea (adult) (pediatric); N18.2 Chronic kidney disease, stage 2 (mild); D63.1 Anemia in chronic kidney disease; R94.31 Abnormal electrocardiogram [ECG] [EKG]; M19.90 Unspecified osteoarthritis, unspecified site; E83.42 Hypomagnesemia; F32.9 Major depressive disorder, single episode, unspecified; Z95.0 Presence of cardiac pacemaker; Z88.0 Allergy status to penicillin; Z88.2 Allergy status to sulfonamides; Z79.899 Other long term (current) drug therapy; Z90.710 Acquired absence of both cervix and uterus
CPT/HCPCS: 36415; 36416; 71045; 74177; 76705; 78227; 80053; 81003; 81015; 82553; 82570; 83690; 83735; 83880; 83930; 83935; 84300; 84484; 84540; 85025; 88304; 93005; 93010; 93306; 96374; 96375; A9537; J1100; J1885; J1940; J1956; J2250; J2270; J2405; J2704; J3010; J3475; J3490; J7120; Q9967; S0020; U0002

== ENCOUNTER 2021-08-14 22:50 | Inpatient (IN) | payer BC ==
[2021-08-15 00:20] LABS: #Eosinphils 0.1 thou/uL (0.0-0.7); #Monocytes 0.9 thou/uL (0.11-0.59); #Neutrophils 11.2 thou/uL (1.40-6.50); %Basophils 0.1 % (0.0-1.0); %Eosinophils 0.6 % (0.0-10.0); %Lymphocytes 7.5 % (21.0-51.0); %Monocytes 6.7 % (0.0-10.0); %Neutrophils 85.1 % (42.0-75.0); Hemoglobin 13.7 g/dL (12.0-16.0); Mean Corpuscular HGB CONC 32.5 g/dL (32.0-36.0); Mean Corpuscular Hemoglobin 29.3 pg (27.0-31.0); Mean Corpuscular Volume 90.2 fL (78.0-98.0); Mean Platelet Volume 9.5 fL (7.4-10.4); Platelet Count 345 thou/uL (130-400); RBC Distribution Width 11.5 % (11.5-14.5); Red Blood Cell (RBC) Count 4.66 mill/uL (4.20-5.40); White Blood Cell (WBC) Count 13.2 thou/uL (4.8-10.8)
[2021-08-15 00:39] LABS: ALT (SGPT) 492 U/L (8-55); AST (SGOT) 449 U/L (5-34); Albumin 4.2 g/dL (3.4-4.8); Alkaline Phosphatase 404 U/L (40-110); BUN (Urea Nitrogen) 11 mg/dL (9.8-20.1); Bilirubin, Total 2.2 mg/dL (0.2-1.2); Calc. Creatinine Clearance 0 mL/min (70-130); Calcium 9.7 mg/dL (7.8-10.44); Carbon Dioxide 27 mmol/L (23-31); Chloride 93 mmol/L (98-107); Globulin 3.1 g/dL (2.4-3.5); Glucose 137 mg/dL (80-115); Potassium 4.1 mmol/L (3.5-5.1); Protein, Total 7.3 g/dL (5.8-8.1); Sodium 131 mmol/L (136-145)
[2021-08-15 00:50] LABS: Anion Gap 15 mmol/L (10-20)
[2021-08-15] MEDS ORDERED: metroNIDAZOLE 500 MG/100 ML BAG ONE ×2 (02:28→10:40)
[2021-08-15] MEDS ORDERED: Cefepime 2 GM VIAL ONE (02:28)
[2021-08-15 03:04] LABS: Bacteria/HPF None Seen HPF (None Seen); Bilirubin 1+ (Negative); Blood, Urine Negative (Negative); Clarity Turbid (Clear); Glucose, Urine (Dipstick) Normal (Negative); Ketone, Urine 20 mg/dL (Negative); Leukocyte Negative Leu/uL (Negative); Nitrite Negative (Negative); Protein, Urine (Dipstick) 30 mg/dL (Neg-Trace); RBC/HPF 0-3 HPF (0-3); Specific Gravity, Urine 1.031 (1.002-1.036); Urobilinogen Greater than 12 mg/dL (Less than 2)
[2021-08-15] MEDS ORDERED: Ondansetron ODT 4 MG TAB SL PRN (04:00)
[2021-08-15] MEDS ORDERED: Ondansetron PF 4 MG/2 ML Vial IVP PRN ×2 (04:00→17:28)
[2021-08-15] MEDS: Lactated Ringer's 1,000 ML IV SCH ×2 (04:14→14:07)
[2021-08-15 04:23] VITALS: BMI 42.9
[2021-08-15] MEDS ORDERED: Ondansetron ODT 4 MG TAB ONE (04:34)
[2021-08-15 05:21] LABS: SARS-CoV-2 NAA Rapid Test Not Detected (NotDetected)
[2021-08-15] MEDS ORDERED: Fentanyl 100 MCG/2 ML VIAL SLOW IVP PRN (06:53)
[2021-08-15] MEDS ORDERED: Fentanyl 100 MCG/2 ML VIAL ONE ×2 (07:51→10:46)
[2021-08-15] MEDS: Fentanyl 100 MCG/2 ML VIAL SLOW IVP PRN ×2 (08:01→10:53)
[2021-08-15] MEDS: Pantoprazole 40 MG GRANULES PACKET PO SCH (08:33)
[2021-08-15] MEDS ORDERED: metroNIDAZOLE 500 MG in Premix Bag 1 BAG IVPB SCH (11:00)
[2021-08-15] MEDS ORDERED: Magnesium Citrate 300 ML BOT PO SCH (14:00)
[2021-08-15] MEDS: HYDROcodone/Acetaminophen 7.5/325 mg Tablet PO PRN ×2 (14:16→23:36)
[2021-08-15] MEDS ORDERED: Cefepime 1 GM in Sodium Chloride 0.9% 100 ML IVPB SCH (15:00)
[2021-08-15] MEDS ORDERED: Ondansetron ORAL SOLN. 4 MG/5 ML UDCUP PO PRN (17:28)
[2021-08-15] MEDS: Sodium Chloride 0.9% 1,000 ML IV SCH (18:17)
[2021-08-15] MEDS: Carvedilol 25 MG TAB PO SCH (21:45)
[2021-08-15] MEDS: OXcarbazepine 300 MG TAB PO SCH (21:45)
[2021-08-16] MEDS: Sodium Chloride 0.9% 1,000 ML IV SCH (06:38)
[2021-08-16 06:56] LABS: #Eosinphils 0.3 thou/uL (0.0-0.7); #Lymphocytes 1.3 thou/uL (1.20-3.40); #Monocytes 0.7 thou/uL (0.11-0.59); #Neutrophils 5.5 thou/uL (1.40-6.50); %Basophils 0.3 % (0.0-1.0); %Eosinophils 3.8 % (0.0-10.0); %Lymphocytes 16.9 % (21.0-51.0); %Monocytes 8.6 % (0.0-10.0); %Neutrophils 70.4 % (42.0-75.0); Hemoglobin 12.3 g/dL (12.0-16.0); Mean Corpuscular HGB CONC 32.7 g/dL (32.0-36.0); Mean Corpuscular Volume 91.7 fL (78.0-98.0); Mean Platelet Volume 8.2 fL (7.4-10.4); Platelet Count 342 thou/uL (130-400); RBC Distribution Width 11.6 % (11.5-14.5); White Blood Cell (WBC) Count 7.8 thou/uL (4.8-10.8)
[2021-08-16 07:37] LABS: ALT (SGPT) 334 U/L (8-55); AST (SGOT) 142 U/L (5-34); Albumin 3.8 g/dL (3.4-4.8); Alkaline Phosphatase 296 U/L (40-110); Anion Gap 12 mmol/L (10-20); BUN (Urea Nitrogen) 8 mg/dL (9.8-20.1); Bilirubin, Total 0.8 mg/dL (0.2-1.2); Calc. Creatinine Clearance 160 mL/min (70-130); Calcium 8.7 mg/dL (7.8-10.44); Carbon Dioxide 29 mmol/L (23-31); Chloride 95 mmol/L (98-107); Globulin 2.7 g/dL (2.4-3.5); Glucose 110 mg/dL (80-115); Potassium 4.2 mmol/L (3.5-5.1); Protein, Total 6.5 g/dL (5.8-8.1); Sodium 132 mmol/L (136-145)
[2021-08-16] MEDS ORDERED: Spironolactone 25 MG TAB PO SCH (08:00)
[2021-08-16] MEDS ORDERED: Mineral Oil ENEMA PR SCH (08:30)
[2021-08-16] MEDS: OXcarbazepine 300 MG TAB PO SCH (08:56)
[2021-08-16] MEDS ORDERED: FLUoxetine HCl 20 MG CAP PO SCH (09:00)
[2021-08-16] MEDS ORDERED: Potassium Chloride 10 MEQ TAB PO SCH (09:00)
[2021-08-16] MEDS ORDERED: Valsartan 80 MG TAB PO SCH (09:00)
[2021-08-16] MEDS ORDERED: DULoxetine 60 MG CAP PO SCH (09:00)
[2021-08-16] MEDS ORDERED: Furosemide 40 MG TAB PO SCH (09:00)
[2021-08-16] MEDS: Carvedilol 25 MG TAB PO SCH (09:13)
[2021-08-16] MEDS: Pantoprazole 40 MG GRANULES PACKET PO SCH (18:41)
[2021-08-16 19:21] VITALS: BP 148/69; TEMP 98.2
== END 2021-08-16 19:21 | disposition home or self-care (01) | DRG 392 ==
LOC: ERS 22:50 → ERHOLD 08-15 03:35 → SURG A 08-15 13:11
PROVIDERS: ADMIT Surgery; ATTEND Surgery
DX: K59.09 Other constipation (principal); Z20.822 Contact with and (suspected) exposure to COVID-19; E03.9 Hypothyroidism, unspecified; E78.5 Hyperlipidemia, unspecified; I10 Essential (primary) hypertension; I48.91 Unspecified atrial fibrillation; J42 Unspecified chronic bronchitis; Z90.710 Acquired absence of both cervix and uterus; Z95.0 Presence of cardiac pacemaker; Z98.890 Other specified postprocedural states; Z88.2 Allergy status to sulfonamides; Z88.0 Allergy status to penicillin; Z79.01 Long term (current) use of anticoagulants; Z79.899 Other long term (current) drug therapy
CPT/HCPCS: 36415; 71045; 74177; 78226; 80053; 81003; 81015; 83605; 85025; 87040; 87086; 96365; 96367; A9537; J0692; J3010; J3490; J7050; J7120; Q0162; U0002

== ENCOUNTER 2022-04-21 08:46 | Emergency (ER) | payer BC ==
[2022-04-21] MEDS ORDERED: Nitroglycerin 0.4 MG TAB 1 EACH ONE (09:12)
[2022-04-21] MEDS ORDERED: Aspirin Chewable 81 MG TAB ONE (09:12)
[2022-04-21 09:16] LABS: #Eosinphils 0.2 thou/uL (0.0-0.7); #Lymphocytes 1.8 thou/uL (1.20-3.40); #Monocytes 0.7 thou/uL (0.11-0.59); #Neutrophils 8.3 thou/uL (1.40-6.50); %Basophils 0.4 % (0.0-1.0); %Eosinophils 2.2 % (0.0-10.0); %Monocytes 6.4 % (0.0-10.0); Mean Corpuscular HGB CONC 34.2 g/dL (32.0-36.0); Mean Corpuscular Hemoglobin 29.8 pg (27.0-31.0); Mean Corpuscular Volume 87.1 fL (78.0-98.0); Mean Platelet Volume 8.7 fL (7.4-10.4); Platelet Count 302 thou/uL (130-400); RBC Distribution Width 11.9 % (11.5-14.5); Red Blood Cell (RBC) Count 4.71 mill/uL (4.20-5.40); White Blood Cell (WBC) Count 11.1 thou/uL (4.8-10.8)
[2022-04-21 09:35] LABS: ALT (SGPT) 31 U/L (8-55); AST (SGOT) 19 U/L (5-34); Albumin 4.1 g/dL (3.4-4.8); Alkaline Phosphatase 131 U/L (40-110); Anion Gap 15 mmol/L (10-20); BUN (Urea Nitrogen) 19 mg/dL (9.8-20.1); Bilirubin, Total 0.5 mg/dL (0.2-1.2); Calc. Creatinine Clearance 0 mL/min (70-130); Calcium 9.1 mg/dL (7.8-10.44); Carbon Dioxide 26 mmol/L (23-31); Chloride 92 mmol/L (98-107); Globulin 3.5 g/dL (2.4-3.5); Glucose 128 mg/dL (80-115); Potassium 4.3 mmol/L (3.5-5.1); Protein, Total 7.6 g/dL (5.8-8.1); Sodium 129 mmol/L (136-145)
[2022-04-21] MEDS ORDERED: Mag-Al 1200 mg/1200 mg/30 ML UDCUP ONE (11:03)
== END 2022-04-21 13:15 | disposition home or self-care (01) ==
LOC: ERS 08:46
DX: R07.2 Precordial pain (principal); I49.9 Cardiac arrhythmia, unspecified; I10 Essential (primary) hypertension; E03.9 Hypothyroidism, unspecified; E78.5 Hyperlipidemia, unspecified; I48.91 Unspecified atrial fibrillation; J42 Unspecified chronic bronchitis; Z95.0 Presence of cardiac pacemaker; Z79.01 Long term (current) use of anticoagulants; Z79.82 Long term (current) use of aspirin; Z79.899 Other long term (current) drug therapy
CPT/HCPCS: 36415; 71045; 80053; 84484; 85025; 93005

== ENCOUNTER 2024-05-01 15:07 | Inpatient (IN) | payer BC, SELFPAY ==
[2024-05-01 18:03] LABS: #Basophils 0.07 10x3/uL (0.0-0.2); %Basophils 0.8 % (0.0-1.0); %Eosinophils 2.7 % (0.0-10.0); %Lymphocytes 22.7 % (21.0-51.0); %Monocytes 9.5 % (0.0-10.0); %Neutrophils 63.9 % (42.0-75.0); Hematocrit 44.6 % (36.0-47.0); Hemoglobin 14.8 g/dL (12.0-16.0); Mean Corpuscular HGB CONC 33.2 g/dL (32.0-36.0); Mean Corpuscular Hemoglobin 29.7 pg (27.0-31.0); Mean Corpuscular Volume 89.4 fL (78.0-98.0); Mean Platelet Volume 11.9 fL (7.4-10.4); Platelet Count 288 10x3/uL (130-400); RBC Distribution Width 12.4 % (11.5-14.5); Red Blood Cell (RBC) Count 4.99 mill/uL (4.20-5.40)
[2024-05-01 18:28] LABS: ALT (SGPT) 30 U/L (8-55); AST (SGOT) 22 U/L (5-34); Albumin 3.9 g/dL (3.4-4.8); Alkaline Phosphatase 117 U/L (40-110); Anion Gap 14 mmol/L (10-20); BUN (Urea Nitrogen) 18 mg/dL (9.8-20.1); Bilirubin, Total 0.3 mg/dL (0.2-1.2); Calc. Creatinine Clearance 0 mL/min (70-130); Calcium 9.9 mg/dL (7.8-10.44); Carbon Dioxide 31 mmol/L (23-31); Chloride 100 mmol/L (98-107); Estimated GFR 80; Globulin 3.5 g/dL (2.4-3.5); Glucose 103 mg/dL (80-115); Lipase 19 U/L (8-78); Potassium 3.7 mmol/L (3.5-5.1); Protein, Total 7.4 g/dL (5.8-8.1); Sodium 141 mmol/L (136-145)
[2024-05-01 18:31] LABS: Troponin I 0.041 ng/mL (< 0.028)
[2024-05-01 21:11] LABS: Hemoglobin A1c 6.1 % (4.0-6.0)
[2024-05-01 22:12] LABS: Cardiac Risk 4.8 (Less than 4.5)
[2024-05-01 22:19] VITALS: BMI 50.8
[2024-05-01] MEDS: OXcarbazepine 300 MG TAB PO SCH (22:49)
[2024-05-01] MEDS: Atorvastatin Calcium 10 MG TAB PO SCH (22:49)
[2024-05-01] MEDS: Apixaban 5 MG TAB PO SCH (22:49)
[2024-05-01] MEDS: Acetaminophen 325 MG TAB PO PRN (22:50)
[2024-05-01 23:27] LABS: Troponin I 0.042 ng/mL (< 0.028)
[2024-05-02 05:36] LABS: Anion Gap 16 mmol/L (10-20); BUN (Urea Nitrogen) 19 mg/dL (9.8-20.1); Calc. Creatinine Clearance 152 mL/min (70-130); Calcium 9.3 mg/dL (7.8-10.44); Carbon Dioxide 24 mmol/L (23-31); Chloride 103 mmol/L (98-107); Estimated GFR 83; Glucose 117 mg/dL (80-115); Potassium 3.7 mmol/L (3.5-5.1); Sodium 139 mmol/L (136-145)
[2024-05-02] MEDS: Levothyroxine Sodium 75 MCG TAB PO SCH (05:45)
[2024-05-02] MEDS ORDERED: Atorvastatin Calcium 10 MG TAB PO SCH (07:28)
[2024-05-02] MEDS ORDERED: Regadenoson 0.4 MG/5 ML SYRINGE ONE (08:54)
[2024-05-02] MEDS: hydrALAZINE 25 MG TAB PO SCH (08:57)
[2024-05-02] MEDS: Valsartan 80 MG TAB PO SCH (08:58)
[2024-05-02] MEDS: Amlodipine 10 MG TAB PO SCH (08:58)
[2024-05-02] MEDS: Spironolactone 25 MG TAB PO SCH (08:58)
[2024-05-02] MEDS: Furosemide 40 MG TAB PO SCH (08:58)
[2024-05-02] MEDS: DULoxetine 60 MG CAP PO SCH (08:58)
[2024-05-02] MEDS: FLUoxetine HCl 20 MG CAP PO SCH (08:58)
[2024-05-02] MEDS: Potassium Chloride 10 MEQ TAB PO SCH (08:58)
[2024-05-02] MEDS: Atorvastatin Calcium 40 MG TAB PO SCH (21:18)
[2024-05-03 05:36] LABS: Anion Gap 17 mmol/L (10-20); BUN (Urea Nitrogen) 12 mg/dL (9.8-20.1); Calc. Creatinine Clearance 170 mL/min (70-130); Calcium 9.3 mg/dL (7.8-10.44); Carbon Dioxide 22 mmol/L (23-31); Chloride 103 mmol/L (98-107); Estimated GFR 95; Glucose 142 mg/dL (80-115); Potassium 3.5 mmol/L (3.5-5.1); Sodium 138 mmol/L (136-145)
[2024-05-03] MEDS: hydrALAZINE 25 MG TAB PO SCH (08:27)
[2024-05-03] MEDS: Carvedilol 25 MG TAB PO SCH (17:24)
[2024-05-04 06:33] LABS: Hemoglobin 12.9 g/dL (12.0-16.0); Mean Corpuscular HGB CONC 33.1 g/dL (32.0-36.0); Mean Corpuscular Hemoglobin 30.4 pg (27.0-31.0); Mean Platelet Volume 12.1 fL (7.4-10.4); Platelet Count 225 10x3/uL (130-400); RBC Distribution Width 12.5 % (11.5-14.5); Red Blood Cell (RBC) Count 4.24 mill/uL (4.20-5.40)
[2024-05-04 06:54] LABS: Anion Gap 15 mmol/L (10-20); BUN (Urea Nitrogen) 15 mg/dL (9.8-20.1); Calc. Creatinine Clearance 165 mL/min (70-130); Calcium 9.4 mg/dL (7.8-10.44); Carbon Dioxide 25 mmol/L (23-31); Chloride 98 mmol/L (98-107); Estimated GFR 92; Glucose 125 mg/dL (80-115); Potassium 3.6 mmol/L (3.5-5.1); Sodium 134 mmol/L (136-145)
[2024-05-05 05:21] LABS: Anion Gap 13 mmol/L (10-20); BUN (Urea Nitrogen) 16 mg/dL (9.8-20.1); Calc. Creatinine Clearance 149 mL/min (70-130); Calcium 9.4 mg/dL (7.8-10.44); Carbon Dioxide 26 mmol/L (23-31); Chloride 95 mmol/L (98-107); Estimated GFR 81; Glucose 121 mg/dL (80-115); Sodium 130 mmol/L (136-145)
[2024-05-05] MEDS: Empagliflozin 10 MG TAB PO SCH (08:17)
[2024-05-06 04:56] LABS: Anion Gap 17 mmol/L (10-20); BUN (Urea Nitrogen) 17 mg/dL (9.8-20.1); Calc. Creatinine Clearance 161 mL/min (70-130); Calcium 9.3 mg/dL (7.8-10.44); Carbon Dioxide 23 mmol/L (23-31); Chloride 96 mmol/L (98-107); Estimated GFR 89; Glucose 137 mg/dL (80-115); Sodium 132 mmol/L (136-145)
[2024-05-06] MEDS: Polyethylene Glycol 3350 17 GM Packet PO SCH (14:35)
[2024-05-06 15:13] VITALS: BP 137/80; TEMP 97.9
[2024-05-08] MEDS ORDERED: Cholecalciferol 1,000 UNITS (25 MCG) TAB PO SCH (09:00)
[2024-05-08] MEDS ORDERED: Ergocalciferol 1.25 MG(50,000 UNITS) CAP PO SCH (09:00)
== END 2024-05-06 17:35 | disposition home or self-care (01) | DRG 292 ==
LOC: ERS 15:07 → 2SW 19:08 → OBSVTOIN 05-04 15:14
PROVIDERS: ADMIT Family Medicine; ATTEND Family Medicine
DX: I11.0 Hypertensive heart disease with heart failure (principal); I24.89 Other forms of acute ischemic heart disease; I50.20 Unspecified systolic (congestive) heart failure; E78.5 Hyperlipidemia, unspecified; I42.8 Other cardiomyopathies; E03.9 Hypothyroidism, unspecified; I48.91 Unspecified atrial fibrillation; F41.9 Anxiety disorder, unspecified; F32.A Depression, unspecified; E66.01 Morbid (severe) obesity due to excess calories; Z88.0 Allergy status to penicillin; Z88.2 Allergy status to sulfonamides; Z79.899 Other long term (current) drug therapy; Z95.0 Presence of cardiac pacemaker; Z90.49 Acquired absence of other specified parts of digestive tract; Z90.89 Acquired absence of other organs
CPT/HCPCS: 36415; 71045; 78452; 80048; 80053; 80061; 83036; 83690; 83880; 84443; 84484; 85025; 85027; 93005; 93017; 93306; 97139; A9502; G0378; J2785

== ENCOUNTER 2025-07-15 15:48 | Emergency (ER) | payer BC, MEDICARE ==
[2025-07-15] MEDS ORDERED: HYDROcodone/Acetaminophen 5/325 mg Tablet ONE ×2 (16:38→17:50)
[2025-07-15] MEDS ORDERED: Methocarbamol 500 MG TAB ONE (17:51)
== END 2025-07-15 17:58 | disposition home or self-care (01) ==
LOC: ERS 15:48
DX: S09.90XA Unspecified injury of head, initial encounter (principal); I11.0 Hypertensive heart disease with heart failure; I50.9 Heart failure, unspecified; I48.91 Unspecified atrial fibrillation; Z95.0 Presence of cardiac pacemaker; W20.8XXA Other cause of strike by thrown, projected or falling object, initial encounter
CPT/HCPCS: 70450; 72125; G0390